=== PATIENT | female | born 2000 | race Caucasian/White ===

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

== ENCOUNTER 2022-01-27 12:49 | Emergency (ER) | payer MEDICAID ==
[~2022-01-27] VITALS: Ht 162.6 cm; Wt 51.0 kg
[~2022-01-27 12:49] MED LIST changes: +NALO4SPR BOTHNARES
[2022-01-27 13:19] VITALS: BP 116/75
== END 2022-01-27 14:51 | disposition home or self-care (01) ==
LOC: ER 12:50
DX: Z00.00 Encounter for general adult medical examination without abnormal findings (principal); F31.9 Bipolar disorder, unspecified; F19.90 Other psychoactive substance use, unspecified, uncomplicated; Z88.0 Allergy status to penicillin; Z88.1 Allergy status to other antibiotic agents
CPT/HCPCS: 99281

== ENCOUNTER 2022-06-23 15:00 | Emergency (ER) | payer MEDICAID ==
[~2022-06-23] VITALS: Ht 165.1 cm; Wt 56.8 kg
[2022-06-23 15:10] VITALS: BP 147/112
== END 2022-06-23 15:50 ==
LOC: ER 15:00
DX: Z04.1 Encounter for examination and observation following transport accident (principal); F41.9 Anxiety disorder, unspecified; F31.9 Bipolar disorder, unspecified; F17.200 Nicotine dependence, unspecified, uncomplicated; F19.90 Other psychoactive substance use, unspecified, uncomplicated; Z72.89 Other problems related to lifestyle; Z88.0 Allergy status to penicillin; Z88.1 Allergy status to other antibiotic agents; Z79.899 Other long term (current) drug therapy; V99.XXXA Unspecified transport accident, initial encounter; Y93.89 Activity, other specified; Y92.89 Other specified places as the place of occurrence of the external cause; Y99.8 Other external cause status
CPT/HCPCS: 99283

== ENCOUNTER 2024-08-10 18:34 | Emergency (ER) | payer MEDICAID ==
[~2024-08-10] VITALS: Ht 157.5 cm; Wt 44.5 kg
[~2024-08-10 18:34] MED LIST changes: +DIAZ-546 PO; -DIAZ10TA PO
[2024-08-10 19:12] LABS: BASOPHILS # (AUTO) 0.1 X10'3 (0-0.2); BASOPHILS % (AUTO) 0.7 % (0-1); EOSINOPHILS # (AUTO) 0.1 X10'3 (0-0.9); HEMATOCRIT 45.2 % (35.0-45.0); HEMOGLOBIN 15.4 g/dl (12.0-16.0); LYMPHOCYTES # (AUTO) 3.7 X10'3 (1.1-4.8); LYMPHOCYTES % (AUTO) 26.8 % (21-51); MEAN CORPUSCULAR HEMOGLOBIN 30.7 PG (27.0-31.0); MEAN CORPUSCULAR HGB CONC 34.1 g/dL (33.0-36.5); MEAN CORPUSCULAR VOLUME 90.2 FL (78-98); MEAN PLATELET VOLUME 7.6 FL (7.4-10.4); MONOCYTES # (AUTO) 0.4 X10'3 (0-0.9); MONOCYTES % (AUTO) 3.2 % (2-12); NEUTROPHILS # (AUTO) 9.3 X10'3 (1.8-7.7); NEUTROPHILS % (AUTO) 68.3 % (42-75); PLATELET COUNT 315 X10'3 (140-440); RED BLOOD COUNT 5.01 X10'6 (4.20-5.60); RED CELL DISTRIBUTION WIDTH 13.3 % (11.5-14.5); WHITE BLOOD COUNT 13.7 X10'3 (4.5-11.0)
[2024-08-10] MEDS: LORazepam 2 mg/ml vial IM ONE (19:20)
[2024-08-10 19:33] LABS: ALBUMIN 4.3 G/DL (3.4-5.0); ANION GAP 15 (8-16); BLOOD UREA NITROGEN 9 MG/DL (7-18); BUN/CREATININE RATIO 16.4 (10.0-20.0); CALCIUM 9.1 MG/DL (8.5-10.1); CHLORIDE 102 MMOL/L (99-107); CREATININE 0.55 MG/DL (0.40-0.90); ETHANOL 282 MG/DL (<10); GLUCOSE 108 MG/DL (70-104); SODIUM 142 MMOL/L (135-145); THYROID STIMULATING HORMONE 0.61 ulU/ml (0.34-4.50); TOTAL CARBON DIOXIDE 25.2 MMOL/L (24-32); eCRCL 113 ML/MIN; eGFR > 90 ML/MIN
[2024-08-10] MEDS: diphenhydrAMINE 50 mg/ml inj IM ONE (19:34)
[2024-08-10] MEDS: haloperidol lactate 5mg/ml inj IM ONE (19:35)
[2024-08-10 19:43] LABS: HCG SERUM QL NEGATIVE
[2024-08-10 19:52] LABS: BILIRUBIN,URINE NEGATIVE (Neg); CLARITY,URINE SLIGHTLY CLOUDY (Clear); COLOR,URINE YELLOW (Yellow); GLUCOSE, URINE NEGATIVE (Neg); KETONES,URINE NEGATIVE (Neg); LEUKOCYTE ESTERASE ,URINE TRACE (Neg); NITRITES, URINE NEGATIVE (Neg); OCCULT BLOOD,URINE NEGATIVE (Neg); PH,URINE 7.5 (4.8-8.0); PROTEIN,URINE 100 mg/dl (Neg); UROBILINOGEN,URINE 0.2 E.U/dL (0.2-1.0)
[2024-08-10 19:54] LABS: UA COLLECTION TYPE VOIDED
[2024-08-10 20:00] LABS: BACTERIA,URINE 2+ /HPF (Neg); RBC,URINE NONE SEEN /HPF (0-2); SQUAMOUS EPITHELIAL CELL,UR MANY /LPF (FEW)
[2024-08-10 20:07] LABS: URINE AMPHETAMINE SCREEN NEGATIVE (Neg); URINE BARBITUATE SCREEN NEGATIVE (Neg); URINE BENZODIAZEPINES SCREEN POSITIVE (Neg); URINE CANNABINOID SCREEN POSITIVE (Neg); URINE COCAINE SCREEN NEGATIVE (Neg); URINE METHADONE SCREEN NEGATIVE (Neg); URINE OPIATE SCREEN NEGATIVE (Neg); URINE PHENCYCLIDINE SCREEN NEGATIVE (Neg)
[2024-08-10] MEDS: diazepam 5mg tablet PO ONE (23:17)
[2024-08-11] MEDS: QUEtiapine 25mg tablet PO ONE (01:34)
[2024-08-11] MEDS: diazepam 5mg tablet PO ONE (02:12)
[2024-08-11] MEDS: phenazopyridine 100mg tablet PO ONE (05:32)
[2024-08-11] MEDS: acetaminophen 325mg tablet PO ONE (05:32)
[2024-08-11] MEDS: diazepam 5mg tablet PO PRN (10:07)
[2024-08-11] MEDS: bisacodyl 10mg suppository rectal RC ONE (10:08)
[2024-08-11 10:20] VITALS: BP 125/96; PULSE 104; RESP 18; TEMP 97.6; O2SAT 99
== END 2024-08-11 15:25 | disposition home or self-care (01) ==
LOC: ER 18:35 → EEVIPCON 18:35 → ER 08-11 15:25
DX: R45.851 Suicidal ideations (principal); F10.129 Alcohol abuse with intoxication, unspecified; M54.2 Cervicalgia; F41.9 Anxiety disorder, unspecified; F31.9 Bipolar disorder, unspecified; Z20.822 Contact with and (suspected) exposure to COVID-19; Z88.0 Allergy status to penicillin; Z88.1 Allergy status to other antibiotic agents; Z79.899 Other long term (current) drug therapy; W10.9XXA Fall (on) (from) unspecified stairs and steps, initial encounter; Y93.89 Activity, other specified; Y92.89 Other specified places as the place of occurrence of the external cause; Y99.8 Other external cause status
CPT/HCPCS: 36415; 70450; 70486; 80048; 80305; 80320; 81001; 84443; 84703; 85025; 87811; 96372; 99285; J1200; J1630; J2060

== ENCOUNTER 2024-11-13 13:21 | Inpatient (IN) | payer MEDICAID ==
[~2024-11-13] VITALS: Ht 162.6 cm; Wt 42.8 kg
[~2024-11-13 13:21] MED LIST changes: -AMPH15TA2 PO; -CLON0.1T PO; -DESV25TA PO; -LISD10CA PO; -NALO4SPR BOTHNARES; -OLAN5TAB75 PO
[2024-11-13 14:06] LABS: BASOPHILS # (AUTO) 0.1 X10'3 (0-0.2); BASOPHILS % (AUTO) 2.3 % (0-1); EOSINOPHILS % (AUTO) 0.7 % (0-6); HEMOGLOBIN 13.5 g/dl (12.0-16.0); LYMPHOCYTES # (AUTO) 0.9 X10'3 (1.1-4.8); LYMPHOCYTES % (AUTO) 18.7 % (21-51); MEAN CORPUSCULAR HEMOGLOBIN 31.8 PG (27.0-31.0); MEAN CORPUSCULAR HGB CONC 32.8 g/dL (33.0-36.5); MEAN CORPUSCULAR VOLUME 96.8 FL (78-98); MEAN PLATELET VOLUME 7.4 FL (7.4-10.4); MONOCYTES # (AUTO) 0.2 X10'3 (0-0.9); MONOCYTES % (AUTO) 5.2 % (2-12); NEUTROPHILS # (AUTO) 3.4 X10'3 (1.8-7.7); NEUTROPHILS % (AUTO) 73.1 % (42-75); PLATELET COUNT 172 X10'3 (140-440); RED BLOOD COUNT 4.24 X10'6 (4.20-5.60); RED CELL DISTRIBUTION WIDTH 15.3 % (11.5-14.5); WHITE BLOOD COUNT 4.6 X10'3 (4.5-11.0)
[2024-11-13 14:22] LABS: ALANINE AMINOTRANSFERASE 125 U/L (12-78); ALBUMIN 4.6 G/DL (3.4-5.0); ALBUMIN/GLOBULIN RATIO 1.1 (1.1-1.5); ALKALINE PHOSPHATASE 179 IU/L (46-116); ANION GAP 24 (8-16); ASPARTATE AMINO TRANSFERASE 276 U/L (10-37); BILIRUBIN,TOTAL 0.7 MG/DL (0.1-1.0); BLOOD UREA NITROGEN 15 MG/DL (7-18); CALCIUM 9.1 MG/DL (8.5-10.1); CHLORIDE 95 MMOL/L (99-107); GLUCOSE 54 MG/DL (70-104); LIPASE 41 U/L (16-77); POTASSIUM 4.5 MMOL/L (3.5-5.1); SODIUM 135 MMOL/L (135-145); TOTAL CARBON DIOXIDE 16.4 MMOL/L (24-32); TOTAL PROTEIN 8.8 G/DL (6.4-8.2); eCRCL 119 ML/MIN; eGFR > 90 ML/MIN
[2024-11-13] MEDS: ondansetron/PF 4mg/2ml inj IV ONE (16:35)
[2024-11-13] MEDS: thiamine 100mg/ml 2ml inj. IV ONE (16:35)
[2024-11-13 16:45] LABS: ETHANOL 100 MG/DL (<10)
[2024-11-13 16:50] LABS: ACETAMINOPHEN < 2.0 UG/ML (10-30)
--- NOTE | 2024-11-13 16:50 | Physician Documentation ---
History of Present Illness ~ Chief Complaint: ETOH Withdrawl Stated Complaint: ETOH WITHDRAWAL Time Seen by MD: 16:17 OK to notify your PCP?: Yes Primary Medical Doctor: ANASTACIO SOLIS Source: patient Mode of Arrival: POV Exam Limitations: no limitations HPI A 24-year-old female who comes in saying she was withdrawing from alcohol. The patient states she drinks a 5th of liquor every day and she drinks every hour. She says she was stopped drinking earlier today in his starting to become very shaky. She states she was never had actual seizures from withdrawal but she was extremely shaky. She also states that she has not had much to eat over the past several days. Tetanus within 5 years?: No Medication Reconciliation Allergies: Coded Allergies: Penicillins (Verified Allergy, Unknown, 06/01/18) amoxicillin (Verified Allergy, Unknown, 06/01/18) Scheduled Diazepam (Valium), 1 TAB PO TID PRN, (Reported) Past Medical History Past Medical History: Anxiety, Bipolar Past Surgical History: noncontributory Alcohol Use: Heavy Drug Use: other Lives with: Mother Lives In: Home Physical Exam Vital Signs: Temperature: 97.8, Source: Oral, Heart Rate: 90, Respiratory Rate: 16, BP: 100/72, Pulse Oximetry: 100, Weight: 42.800 Oxygen Flow Rate: 0 Pulse Oximetry Reflects: adequate oxygenation General Appearance: alert, WD/WN, moderate distress (The patient is very tremulous) Head: no evidence of injury Face: normal Pupils/EOM/Fundus: PERRLA Respiratory No accessory muscle use or retractions. Lungs are clear to auscultation all jefferson. Cardiovascular No rubs, gallops or murmurs. No peripheral edema, cyanosis or clubbing of the extremities Skin: warm/dry, normal color Neurologic: oriented x4, corporate director of human resources II-XII nml as tested, memory intact, oriented to time, oriented to person, oriented to place, oriented to events Cerebellar function exam: tremor (The patient is very tremulous) Thoughts/Hallucinations: normal thought pattern, no apparent hallucination Affect: anxious Progress Results/Orders Reviewed/noted all lab results: Yes Results/Orders Orders - KACY HARRIS Saline Lock (11/13/24 ) Page Hospitalist (11/13/24 19:23) Completed Orders - KACY HARRIS Drug Screen, Urine (11/13/24 16:19) Ondansetron Inj. (Zofran 4mg/2ml Vial) (11/13/24 16:20) Thiamine Inj. (Thiamine Inj.) (11/13/24 16:20) Dextrose 5%-Normal Saline (Dextrose 5%-N (11/13/24 16:45) Diazepam Inj (Valium Inj) (11/13/24 16:45) Normal Saline 1000ml (Sodium Chloride 10 (11/13/24 18:10) Chlordiazepoxide Capsule (Librium Capsul (11/13/24 18:10) Medications Received in ER Medications (Trade) Dose Ordered Sig/Mer Route PRN Reason Start Time Stop Time Status Last Admin Dose Admin (Zofran 4mg/2ml vial) 4 mg ONCE ONCE IV 11/13/24 16:20 11/13/24 16:22 DC 11/13/24 16:35 4 MG (thiamine inj.) 100 mg ONCE ONCE IV 11/13/24 16:20 11/13/24 16:22 DC 11/13/24 16:35 100 MG Dextrose/Sodium Chloride 1,000 ml @ 50 mls/hr Q20H ONCE IV 11/13/24 16:45 11/13/24 18:19 DC 11/13/24 17:31 50 MLS/HR (Valium inj) 5 mg ONCE ONCE IV 11/13/24 16:45 11/13/24 16:47 DC 11/13/24 17:32 5 MG Sodium Chloride 1,000 ml @ 1,000 mls/hr ONCE ONCE IV 11/13/24 18:10 11/13/24 19:09 DC 11/13/24 18:34 1,000 MLS/HR (Librium capsule) 50 mg ONCE ONCE PO 11/13/24 18:10 11/13/24 18:11 DC 11/13/24 18:34 50 MG Vital Signs 11/13/24 11/13/24 11/13/24 11/13/24 13:27 16:42 16:59 19:06 Temp 97.8 97.8 Pulse 101 90 Resp 18 16 18 B/P (MAP) 125/81 100/72 (81) Pulse Ox 97 100 O2 Flow Rate 0 0 11/13/24 19:09 Pulse 92 Resp 16 B/P (MAP) 119/86 (97) Pulse Ox 99 O2 Flow Rate 0 Laboratory Tests Test 11/13/24 13:31 11/13/24 13:47 11/13/24 18:07 Urine Specimen Description Cln catch midstream Urine Color Yellow Urine Clarity Slightly cloudy Urine pH 6.0 Urine Specific [place] >=1.030 Urine Protein 30 H Urine Glucose (UA) Negative Urine Ketones >=80 Urine Occult Blood Trace-intact Urine Nitrite Negative Urine Bilirubin Negative Urine Urobilinogen 0.2 Urine Leukocyte Esterase Negative Urine RBC 0-2 Urine WBC 0-4 Urine Squamous Epithelial Cells Many Urine Transitional Epithelial Cells Few Urine Bacteria Few Urine Fine Granular Casts 0-3 Urine Mucus Moderate Urine Culture Indicated Not ind Volume Urine Centrifuged 10 ml Urine HCG, Qualitative Negative Urine Comment Urine Opiates Screen Negative Urine Methadone Screen Negative Urine Fentanyl Screen Negative Urine Barbiturates Screen Negative Urine Phencyclidine Screen Negative Urine Amphetamines Screen Positive Urine Benzodiazepines Screen Positive Urine Cocaine Screen Negative Urine Cannabinoids Screen Negative Drug Screen Comment White Blood Count 4.6 Red Blood Count 4.24 Hemoglobin 13.5 Hematocrit 41.0 Mean Corpuscular Volume 96.8 Mean Corpuscular Hemoglobin 31.8 H Mean Corpuscular Hemoglobin Concent 32.8 L Red Cell Distribution Width 15.3 H Platelet Count 172 Mean Platelet Volume 7.4 Neutrophils (%) (Auto) 73.1 Lymphocytes (%) (Auto) 18.7 L Monocytes (%) (Auto) 5.2 Eosinophils (%) (Auto) 0.7 Basophils (%) (Auto) 2.3 H Neutrophils # (Auto) 3.4 Lymphocytes # (Auto) 0.9 L Monocytes # (Auto) 0.2 Eosinophils # (Auto) 0.0 Basophils # (Auto) 0.1 CBC Comment Sodium Level 135 Potassium Level 4.5 Chloride Level 95 L Carbon Dioxide Level 16.4 L Anion Gap 24 H Blood Urea Nitrogen 15 Creatinine 0.50 Estimated GFR/1.73 m2 > 90 BUN/Creatinine Ratio 30.0 H Glucose Level 54 L Calcium Level 9.1 Total Bilirubin 0.7 Aspartate Amino Transf (AST/SGOT) 276 H Alanine Aminotransferase (ALT/SGPT) 125 H Alkaline Phosphatase 179 H Total Protein 8.8 H Albumin 4.6 Globulin 4.2 Albumin/Globulin Ratio 1.1 Lipase 41 Chemistry Comments Acetaminophen Level < 2.0 L Ethyl Alcohol Level 100 H Glucometer 222 H Medical Decision Making Findings Patient was quite tremulous and obviously having a significant withdrawal from alcohol. We are experiencing a nationwide shortage of Ativan so I gave her Valium 5 mg IV and in his she ordered D5 half-normal saline as her blood sugar was 50 forward she says she has not had much to eat or drink over the past couple of days. I ordered this that is 50 cc/hour however it seems it was ran in much quicker which brought her blood sugar up to 222 so I DC with the D5 half-normal saline and switched over to a bolus of normal saline. I also gave the patient Zofran 4 mg IV and thiamine 100 mg IV. The patient was still quite tremulous so I gave her Librium 50 mg p.o.. With this point I believe the patient would benefit from admission. Her AST ALT in alk phos were all elevated. This is concerning for transaminitis. I will place a call out to the hospitalist for admission. Additional Comment Alcohol abuse. Alcohol withdrawals. Delirium tremors. Departure Disposition: ADMITTED INPATIENT Admitted to Inpatient Unit: yes, to hospitalist Impression: Primary Impression: Alcohol withdrawal syndrome Additional Impression: Transaminitis Condition: Guarded Referrals: NO PRIMARY CARE PROVIDER (PCP) Signature Scribe Signature: No scribe Attestation: The note accurately reflects work and decisions made by me.Kacy BRODERICK 11/13/24 19:36 KACY HARRIS Nov 13, 2024 16:50
[2024-11-13 16:51] LABS: BILIRUBIN,URINE NEGATIVE (Neg); CLARITY,URINE SLIGHTLY CLOUDY (Clear); COLOR,URINE YELLOW (Yellow); GLUCOSE, URINE NEGATIVE (Neg); KETONES,URINE >=80 mg/dl (Neg); LEUKOCYTE ESTERASE ,URINE NEGATIVE (Neg); NITRITES, URINE NEGATIVE (Neg); OCCULT BLOOD,URINE TRACE-INTACT (Neg); PROTEIN,URINE 30 mg/dl (Neg); UROBILINOGEN,URINE 0.2 E.U/dL (0.2-1.0)
[2024-11-13 16:53] LABS: URINE HCG NEGATIVE (NEG)
[2024-11-13 16:54] LABS: UA COLLECTION TYPE CLN CATCH MIDSTREAM
[2024-11-13 16:57] LABS: BACTERIA,URINE FEW /HPF (Neg); MUCUS STRANDS MODERATE /LPF (Neg); RBC,URINE 0-2 /HPF (0-2); SQUAMOUS EPITHELIAL CELL,UR MANY /LPF (FEW); TRANSITIONAL EPI CELLS,URINE FEW /HPF; WBC,URINE 0-4 /HPF (0-4)
[2024-11-13 16:58] LABS: FINE GRANULAR CAST 0-3 /LPF (NEGATIVE)
[2024-11-13 17:07] LABS: URINE AMPHETAMINE SCREEN POSITIVE (Neg); URINE BARBITUATE SCREEN NEGATIVE (Neg); URINE BENZODIAZEPINES SCREEN POSITIVE (Neg); URINE CANNABINOID SCREEN NEGATIVE (Neg); URINE COCAINE SCREEN NEGATIVE (Neg); URINE METHADONE SCREEN NEGATIVE (Neg); URINE OPIATE SCREEN NEGATIVE (Neg); URINE PHENCYCLIDINE SCREEN NEGATIVE (Neg)
[2024-11-13] MEDS: dextrose 5%-normal saline 1,000 ML IV ONE (17:31)
[2024-11-13] MEDS: diazepam inj 5 MG/ML inj. IV ONE (17:32)
[2024-11-13] MEDS: chlordiazePOXIDE 25mg capsule PO ONE (18:34)
[2024-11-13] MEDS: normal saline 1000ml 1,000 ML IV ONE (18:34)
[2024-11-13] MEDS ORDERED: LORazepam 2 mg/ml vial IV PRN (19:30)
[2024-11-13] MEDS ORDERED: potassium Cl 20 mEq SR tablet PO PRN ×2 (19:30)
[2024-11-13] MEDS ORDERED: magnesium sulf-water 2g/50mL 50 ML IV PRN (19:30)
[2024-11-13] MEDS ORDERED: haloperidol lactate 5mg/ml inj IM PRN (19:30)
[2024-11-13] MEDS ORDERED: mag hydrox/Alum hydrox/simeth 30ml oral suspension PO PRN (19:30)
[2024-11-13] MEDS ORDERED: magnesium hydroxide 30ml (MOM) UD suspension PO PRN (19:30)
[2024-11-13] MEDS ORDERED: HYDROcodone/acetaminophen 5mg/325mg tablet PO PRN (19:30)
[2024-11-13] MEDS ORDERED: morphine 2 MG/ML inj. syringe IV PRN (19:30)
[2024-11-13] MEDS ORDERED: dextrose 50%-water 50ml dispensing syringe IV PRN (19:30)
[2024-11-13] MEDS ORDERED: magnesium sulf-water 4G/100mL 100 ML IV PRN (19:30)
[2024-11-13] MEDS ORDERED: potassium Cl 40MEQ/1/2NS 520ml 520 ML IV PRN (19:30)
[2024-11-13] MEDS ORDERED: normal saline 1000ml 1,000 ML IV SCH (19:30)
[2024-11-13] MEDS ORDERED: acetaminophen 325mg tablet PO PRN (19:30)
[2024-11-13] MEDS ORDERED: ondansetron/PF 4mg/2ml inj IV PRN (19:30)
[2024-11-13] MEDS: K and/or MAG REPLACEMENT MC SCH (20:00)
[2024-11-13] MEDS: heparin, porcine 5000 units/ml vial SQ SCH (20:00)
[2024-11-13] MEDS: docusate sod 100mg capsule PO SCH (20:00)
[2024-11-13] MEDS ORDERED: LORazepam 1 MG tablet PO PRN (20:07)
--- NOTE | 2024-11-13 20:08 | HISTORY AND PHYSICAL-Residence ---
History & Physical Providers to CC Resident Creating Document: OLU RIVAS, RES CC: EMILE CARABALLO Jr. DO ~ History of Present Illness Primary Medical Doctor: ANASTACIO SOLIS Reason for Admit\Complaint: Alcohol withdrawal History of Present Illness A 24-year-old female with past medical history of anxiety presented to the ED as she was shaky, sweating and did not feel safe at home. Patient endorses headache, blurring of vision. Patient also endorses nausea but does not have vomitings. Patient endorses consumption of a 5th of alcohol (vodka) this morning. Patient denies pain abdomen, seizure episodes. Allergies: Coded Allergies: Penicillins (Verified Allergy, Unknown, 06/01/18) amoxicillin (Verified Allergy, Unknown, 06/01/18) Home Medications Home Medications Active Reported Valium (Diazepam) 10 Mg Tablet 1 Tab PO TID PRN Past Medical History Past Medical History Anxiety Past Surgical History Surgical History Comment None Past Social History Social History Comment Drinks 1/5 of alcohol (vodka) every day Consumes tobacco in the form of vaping Consumes marijuana but quit 3-4 months ago Claims that she tried meth only yesterday Lives by herself with a roommate Alcohol Use: Heavy Drug Use: Other Lives with: Mother Lives In: Home ROS ROS All other systems negative except for the pertinent positives mentioned in the HPI Exam Vitals: Vital Signs Date Time Temp Pulse Resp B/P (MAP) Pulse Ox O2 Delivery O2 Flow Rate FiO2 11/13/24 19:09 92 16 119/86 (97) 99 0 11/13/24 16:42 97.8 General: General: Drowsy, oriented to time place person, able to follow commands HEENT: An erythematous lesion at the corner of the left side of the nose, in the angle of the left side of the mouth, PERRLA, no icterus, pallor, lymphadenopathy, carotid bruit Respiratory system: Bilateral vesicular breath sounds heard, no adventitious breath sounds CVS: S1-S2 heard, no murmurs/rubs/gallop GI: Soft, nontender, no organomegaly, no guarding/rigidity, bowel sounds present Neuro: No focal neurological deficits Extremities: Shaking of hands when extended, No edema cyanosis clubbing Musculoskeletal: No deformities Skin: Warm and dry Psych: Anxious Diagnostic Data Last Recorded Lab Results: 11/13/24 1347 11/13/24 1347 Advance Care Planning Advanced Care plannin - 30 Minutes (I spent 20 minutes discussing various resuscitative measures and the patient decided to be full code) Additional Plan Assessment: 24-year-old female presented to the ED after consuming about 1/5 of alcohol this morning. Patient was admitted for the evaluation and management of alcohol withdrawal and elevated transaminases. 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 Alcoholic ketoacidosis Urinalysis positive for ketones Continue IV fluids Elevated anion gap, decreased bicarb Continue to monitor CMP, if bicarb continues to be low or decreases further we will consider bicarb drip Possible Alcoholic hepatitis Elevated liver enzymes, AST/ALT: 2.2 Follow up with hepatitis panel, INR Follow up with ultrasound abdomen Drug use disorder U tox positive for meth business services intern and substance abuse navigator Anxiety Continue Librium Outpatient consult Code status: Full code Diet: Regular DVT prophylaxis: Heparin 5000 subcu Disposition: Admit to ortho, follow up with ultrasound abdomen and INR, fluid resuscitation Olu Rivas MD Internal Medicine, PGY 1 Nocturnal revenue stamp cutter attestation of resident HP. Attestation of HP only, care immediately directed to hospitalist team - Liberium - Diet - Meth WD - Lisbeth for DVT proph Patient seen through remote audiovisual assessment through HIPAA compliant setup. All labs, flowsheets, and images reviewed. Date of Service: Nov 13, 2024 Billing Provider: EMILE CARABALLO Jr. DO OLU RIVAS, RES Nov 13, 2024 20:08 EMILE CARABALLO Jr. DO Nov 14, 2024 04:11
[2024-11-13] MEDS: LORazepam 1 MG tablet PO PRN (20:12)
[2024-11-13 20:34] LABS: PROTHROMBIN TIME 10.2 SECONDS (9.0-12.0)
[2024-11-13] MEDS ORDERED: chlordiazePOXIDE 25mg capsule PO SCH (21:00)
[2024-11-13] MEDS: haloperidol 5mg tablet PO PRN (21:15)
[2024-11-13] MEDS: thiamine 100mg/ml 2ml inj. IV SCH (21:16)
[2024-11-13] MEDS: dextrose 5%-normal saline 1,000 ML IV SCH (21:20)
[2024-11-13 21:24] LABS: PHOSPHORUS 4.5 MG/DL (2.3-4.5)
[2024-11-13 22:49] VITALS: BP 122/84; PULSE 105; RESP 14; O2SAT 100
[2024-11-13 23:30] VITALS: BP 118/79; PULSE 108; RESP 18; TEMP 98.2; O2SAT 99
[2024-11-14] MEDS: chlordiazePOXIDE 25mg capsule PO SCH (00:09)
[2024-11-14 06:00] VITALS: BP 106/73; PULSE 89; RESP 18; TEMP 98.2; O2SAT 97
--- NOTE | 2024-11-14 06:51 | RADIOLOGY REPORT ---
EXAM: US Abdomen Limited, Right Upper Quadrant CLINICAL INDICATION: elevated Bilirubin TECHNIQUE: Real-time ultrasound of the right upper quadrant with image documentation. COMPARISON: None FINDINGS: LIVER: Liver measures up to 18.67 cm. Fatty infiltration of the liver. No intrahepatic bile duct dilation. GALLBLADDER: Gallbladder sludge. Negative Landeros's sign was reported by the shear operator automatic. No galls tones. COMMON BILE DUCT: Unremarkable as visualized. No stones. No dilation. Common bile duct measures 0.27 cm in diameter. PANCREAS: Unremarkable as visualized. RIGHT KIDNEY: Unremarkable. No stones. No hydronephrosis. The right kidney measures 9.9 x 2.9 x 5.3 cm. OTHER FINDINGS: . . IMPRESSION: Fatty infiltration of the liver. Gallbladder sludge without convincing evidence of acute cholecystitis.
[2024-11-14 07:03] LABS: BASOPHILS % (AUTO) 0.4 % (0-1); EOSINOPHILS # (AUTO) 0.1 X10'3 (0-0.9); EOSINOPHILS % (AUTO) 1.2 % (0-6); HEMATOCRIT 34.6 % (35.0-45.0); HEMOGLOBIN 11.6 g/dl (12.0-16.0); LYMPHOCYTES # (AUTO) 0.9 X10'3 (1.1-4.8); LYMPHOCYTES % (AUTO) 16.4 % (21-51); MEAN CORPUSCULAR HEMOGLOBIN 32.1 PG (27.0-31.0); MEAN CORPUSCULAR HGB CONC 33.6 g/dL (33.0-36.5); MEAN CORPUSCULAR VOLUME 95.4 FL (78-98); MEAN PLATELET VOLUME 8.1 FL (7.4-10.4); MONOCYTES # (AUTO) 0.3 X10'3 (0-0.9); MONOCYTES % (AUTO) 5.6 % (2-12); NEUTROPHILS # (AUTO) 4.3 X10'3 (1.8-7.7); NEUTROPHILS % (AUTO) 76.4 % (42-75); PLATELET COUNT 126 X10'3 (140-440); RED BLOOD COUNT 3.62 X10'6 (4.20-5.60); RED CELL DISTRIBUTION WIDTH 15.1 % (11.5-14.5); WHITE BLOOD COUNT 5.6 X10'3 (4.5-11.0)
[2024-11-14] MEDS: folic acid 1mg/0.2ml inj IV SCH (07:22)
[2024-11-14] MEDS: multivitamins, therapeutics tablet PO SCH (07:22)
[2024-11-14 07:38] LABS: ALANINE AMINOTRANSFERASE 77 U/L (12-78); ALBUMIN 3.2 G/DL (3.4-5.0); ALKALINE PHOSPHATASE 130 IU/L (46-116); ANION GAP 13 (8-16); ASPARTATE AMINO TRANSFERASE 128 U/L (10-37); BILIRUBIN,TOTAL 0.8 MG/DL (0.1-1.0); BLOOD UREA NITROGEN 9 MG/DL (7-18); BUN/CREATININE RATIO 20.9 (10.0-20.0); CALCIUM 8.3 MG/DL (8.5-10.1); CHLORIDE 104 MMOL/L (99-107); CREATININE 0.43 MG/DL (0.40-0.90); GLUCOSE 90 MG/DL (70-104); MAGNESIUM 1.6 MG/DL (1.5-2.4); POTASSIUM 3.7 MMOL/L (3.5-5.1); SODIUM 140 MMOL/L (135-145); TOTAL CARBON DIOXIDE 23.2 MMOL/L (24-32); TOTAL PROTEIN 6.4 G/DL (6.4-8.2); eCRCL 139 ML/MIN; eGFR > 90 ML/MIN
[2024-11-14 10:00] VITALS: BP 110/74; PULSE 81; RESP 12; TEMP 98.2; O2SAT 99
[2024-11-14] MEDS ORDERED: lactose-reduced food (Ensure Enlive) - 237ml bottle PO SCH (13:00)
[2024-11-14] MEDS ORDERED: NO HOME MEDS (14:58)
[2024-11-14] MEDS: lactose-reduced food (Ensure Enlive) - 237ml bottle PO SCH (17:54)
[2024-11-14 18:00] VITALS: BP 108/73; PULSE 79; RESP 12; TEMP 98.3; O2SAT 99
--- NOTE | 2024-11-14 19:09 | PROGRESS NOTE- Residence ---
Progress Note - Resident Providers to CC Resident Creating Document: ALEXANDRIA FREED, ALCIRA ~ Antibiotic Timeout Antibiotic Ordered?: No Subjective Patient was seen and examined at bedside today. Patient appeared drowsy. Objective Vital Signs Date Time Temp Pulse Resp B/P (MAP) Pulse Ox O2 Delivery O2 Flow Rate FiO2 11/14/24 10:00 98.2 81 12 110/74 (86) 99 Room Air 11/14/24 08:00 0.0 Result Diagram: 11/14/24 0544 11/14/24 0544 General: Drowsy, oriented to time place person, able to follow commands HEENT: An erythematous lesion at the corner of the left side of the nose, in the angle of the left side of the mouth, PERRLA, no icterus, pallor, lymphadenopathy, carotid bruit Respiratory system: Bilateral vesicular breath sounds heard, no adventitious breath sounds CVS: S1-S2 heard, no murmurs/rubs/gallop GI: Soft, nontender, no organomegaly, no guarding/rigidity, bowel sounds present Neuro: No focal neurological deficits Extremities: Shaking of hands when extended, No edema cyanosis clubbing Musculoskeletal: No deformities Skin: Warm and dry Coagulation Studies Laboratory Tests Test 11/13/24 20:12 Prothrombin Time 10.2 SECONDS (9.0-12.0) INR International Normalized Ratio 1.0 INR Coagulation Comments Plan Plan Assessment: 24-year-old female presented to the ED after consuming about 1/5 of alcohol this morning. Patient was admitted for the evaluation and management of alcohol withdrawal and elevated transaminases. Plan: Alcohol use disorder Alcohol withdrawal Patient presents with tremulousness Elevated ethyl alcohol On alcohol withdrawal protocol In the ED patient received IV thiamine, DNS Librium 25 mg TID MVT , thiamine IV and folic acid. IV Aspiration precautions medical staff services manager and substance abuse navigator Alcoholic ketoacidosis Urinalysis positive for ketones Bicarb improved, anion gap closed. Continue IV fluids Continue to monitor CMP, if bicarb continues to be low or decreases further we will consider bicarb drip Possible Alcoholic hepatitis Elevated liver enzymes, trending down Follow up with hepatitis panel, INR Ultrasound abdomen showed fatty liver Drug use disorder U tox positive for meth medical staff services manager and substance abuse navigator Anxiety Continue Librium Outpatient consult Code status: Full code Diet: Regular DVT prophylaxis: Heparin 5000 subcu GI prophylaxis; plantar Disposition: Guarded Alexandria Freed M.D PGY1 Date of Service: Nov 14, 2024 Billing Provider: KAISER MELENDEZ MD Common Visit Codes: [id number] INP/OBS CARE(HIGH) ALEXANDRIA FREED, RES Nov 14, 2024 19:09 KAISER MELENDEZ MD Nov 14, 2024 20:32
[2024-11-14 22:00] VITALS: BP 119/88; PULSE 96; RESP 16; TEMP 98.9; O2SAT 99
[2024-11-15 04:19] LABS: BASOPHILS % (AUTO) 0.8 % (0-1); EOSINOPHILS # (AUTO) 0.1 X10'3 (0-0.9); EOSINOPHILS % (AUTO) 2.9 % (0-6); HEMATOCRIT 35.1 % (35.0-45.0); HEMOGLOBIN 12.1 g/dl (12.0-16.0); LYMPHOCYTES # (AUTO) 0.9 X10'3 (1.1-4.8); LYMPHOCYTES % (AUTO) 26.4 % (21-51); MEAN CORPUSCULAR HEMOGLOBIN 32.8 PG (27.0-31.0); MEAN CORPUSCULAR HGB CONC 34.4 g/dL (33.0-36.5); MEAN CORPUSCULAR VOLUME 95.5 FL (78-98); MEAN PLATELET VOLUME 7.9 FL (7.4-10.4); MONOCYTES # (AUTO) 0.3 X10'3 (0-0.9); MONOCYTES % (AUTO) 9.1 % (2-12); NEUTROPHILS % (AUTO) 60.8 % (42-75); PLATELET COUNT 108 X10'3 (140-440); RED BLOOD COUNT 3.68 X10'6 (4.20-5.60); RED CELL DISTRIBUTION WIDTH 14.9 % (11.5-14.5); WHITE BLOOD COUNT 3.2 X10'3 (4.5-11.0)
[2024-11-15 04:34] LABS: ALANINE AMINOTRANSFERASE 65 U/L (12-78); ALBUMIN 3.1 G/DL (3.4-5.0); ALKALINE PHOSPHATASE 118 IU/L (46-116); ANION GAP 9 (8-16); ASPARTATE AMINO TRANSFERASE 83 U/L (10-37); BILIRUBIN,TOTAL 0.4 MG/DL (0.1-1.0); BLOOD UREA NITROGEN 4 MG/DL (7-18); BUN/CREATININE RATIO 8.9 (10.0-20.0); CALCIUM 8.3 MG/DL (8.5-10.1); CHLORIDE 106 MMOL/L (99-107); CREATININE 0.45 MG/DL (0.40-0.90); GLUCOSE 116 MG/DL (70-104); MAGNESIUM 1.4 MG/DL (1.5-2.4); POTASSIUM 3.5 MMOL/L (3.5-5.1); SODIUM 139 MMOL/L (135-145); TOTAL CARBON DIOXIDE 24.3 MMOL/L (24-32); TOTAL PROTEIN 6.3 G/DL (6.4-8.2); eCRCL 132 ML/MIN; eGFR > 90 ML/MIN
[2024-11-15 06:00] VITALS: BP 122/78; PULSE 82; RESP 15; TEMP 97.6; O2SAT 99
[2024-11-15 07:10] VITALS: BP 122/78; PULSE 82; RESP 15; TEMP 97.6; O2SAT 99
[2024-11-15 07:11] LABS: HBSAG SCREEN Negative (Negative); HEP A AB, IGM Negative (Negative); HEP B CORE AB, IGM Negative (Negative); HEPATITIS C VIRUS ANTIBODY Non Reactive (Non Reactive)
[2024-11-15] MEDS: pantoprazole 40mg Tablet.DR PO SCH (08:04)
[2024-11-15] MEDS ORDERED: LORA-269 PO (08:18)
[2024-11-15] MEDS: magnesium Cl slow-release 64mg tablet PO PRN (09:13)
--- NOTE | 2024-11-15 19:12 | DISCHARGE SUMMARY-Residence ---
Discharge Summary Providers to CC Resident Creating Document: DESI BARNESLILIANATANIALCIRA ~ Discharge Summary Admission Diagnosis: ALCOHOL WITHDRAWL, KETOACIDOSIS Hospital Course DATE OF ADMISSION: 11/13/2024 DATE OF DISCHARGE: 11/15/2024 Labs at the time of discharge WBC 3.2 Hemoglobin 12.1 Sodium 139 Potassium 3.5 Creatinine 0.45 AST eight three ALT 65 Alkaline phosphatase 118 U tox positive for benzodiazepines Ethyl alcohol level 100 Urine analysis negative for infection Hepatitis B negative, hepatitis-C negative, hepatitis-A negative Abdominal ultrasound ] Fatty infiltration of the liver. Gallbladder sludge without convincing evidence of acute cholecystitis. Discharge Diagnosis\Comment: Alcohol use disorder Alcohol withdrawal Alcohol ketoacidosis Transaminitis Drug use disorder Operations\Procedures: None Consultants: None Complications: None Condition on DC: Stable New Medications: Lorazepam (Ativan) 1 Mg Tablet 1 TAB PO Q12H PRN PRN for anxiety, #20 TAB 0 Refills Discontinued Medications: Home Med List (No Home Medications) Each Discharge Summary: This is a 24-year-old female with past medical history of anxiety presented to the ED with the complaints of shakiness, sweating, headache, blurring of vision. She also had nausea but no vomiting. She consumes about 5th of vodka every day. S drink was the morning. She was admitted for management of alcohol withdrawal. She was started on withdrawal protocol, Librium 25 mg t.i.d., Ativan p.r.n.. She was given IV thiamine and folic acid and multivitamins. Was placed on aspiration precautions. Urine analysis was positive for ketones with a low bicarb and elevated anion gap. Was managed for alcoholic ketoacidosis with IV fluids. Her liver enzymes were elevated at the time of admission, trended down with IV fluids. Ultrasound showed fatty liver. Hepatitis-B and C were negative. Her U tox was positive for methamphetamine. Patient has improved symptomatically and is stable enough to be discharged home. At the time of discharge he had the following physical examination finds General: Drowsy, oriented to time place person, able to follow commands HEENT: An erythematous lesion at the corner of the left side of the nose, in the angle of the left side of the mouth, PERRLA, no icterus, pallor, lymphadenopathy, carotid bruit Respiratory system: Bilateral vesicular breath sounds heard, no adventitious breath sounds CVS: S1-S2 heard, no murmurs/rubs/gallop GI: Soft, nontender, no organomegaly, no guarding/rigidity, bowel sounds present Neuro: No focal neurological deficits Extremities: Shaking of hands when extended, No edema cyanosis clubbing Musculoskeletal: No deformities Skin: Warm and dry Discharge medications Lorazepam 1 mg q.12 p.r.n. Follow up with PCP in two weeks Try and quit alcohol drinking. Call 911 or return to ER in case of headache, seizures, increased shakiness, tremors. *Problems/Diagnosis: (1) Alcoholic intoxication Status: Acute (2) Alcohol withdrawal syndrome Status: Acute (3) Polysubstance abuse Status: Acute Total Time Spent on D/C: Up to 30 Minutes Date of Service: Nov 15, 2024 Billing Provider: KAISER MELENDEZ MD Common Visit Codes: [id number]-[id number] DISCH DAY >30min ALEXANDRIA BARNES, RES Nov 15, 2024 19:12 KAISER MELENDEZ MD Nov 15, 2024 21:31
[2024-11-15] MEDS ORDERED: LORazepam 2 mg/ml vial IV PRN (19:30)
[2024-11-17] MEDS ORDERED: thiamine 100mg tablet PO SCH (08:00)
[2024-11-17] MEDS ORDERED: LORazepam 2 mg/ml vial IV PRN (19:30)
[2024-11-18] MEDS ORDERED: folic acid 1mg tablet PO SCH (08:00)
== END 2024-11-15 10:13 | disposition home or self-care (01) | DRG 249 ==
LOC: ER 13:22 → ED HOLD 19:53 → ORTHO 4S 22:00
PROVIDERS: ADMIT Internal Medicine Critical Care Medicine; ATTEND Internal Medicine
DX: R11.0 Nausea (principal); E87.29 Other acidosis; F10.239 Alcohol dependence with withdrawal, unspecified; F31.9 Bipolar disorder, unspecified; F41.9 Anxiety disorder, unspecified; F15.90 Other stimulant use, unspecified, uncomplicated
CPT/HCPCS: 36415; 76700; 80053; 80074; 80305; 80320; 80329; 81001; 81025; 82948; 82977; 83690; 83735; 84100; 85025; 85610; 87081; 96365; 96375; 97110; 97116; 97161; 99285; G0378; J2405; J3360; J3411; J3490; J7030; J7042; J7070

== ENCOUNTER 2025-01-09 00:08 | Inpatient (IN) | payer MEDICAID ==
[~2025-01-09] VITALS: Ht 162.6 cm; Wt 51.2 kg
[~2025-01-09 00:08] MED LIST changes: -DIAZ-546 PO; +LORA-269 PO
[2025-01-09 02:30] LABS: BASOPHILS % (AUTO) 0.8 % (0-1); EOSINOPHILS % (AUTO) 0.1 % (0-6); HEMATOCRIT 43.9 % (35.0-45.0); LYMPHOCYTES % (AUTO) 20.1 % (21-51); MEAN CORPUSCULAR HEMOGLOBIN 32.5 PG (27.0-31.0); MEAN CORPUSCULAR HGB CONC 34.1 g/dL (33.0-36.5); MEAN CORPUSCULAR VOLUME 95.4 FL (78-98); MEAN PLATELET VOLUME 6.9 FL (7.4-10.4); MONOCYTES # (AUTO) 0.2 X10'3 (0-0.9); MONOCYTES % (AUTO) 4.4 % (2-12); NEUTROPHILS # (AUTO) 3.6 X10'3 (1.8-7.7); NEUTROPHILS % (AUTO) 74.6 % (42-75); PLATELET COUNT 153 X10'3 (140-440); RED CELL DISTRIBUTION WIDTH 14.8 % (11.5-14.5); WHITE BLOOD COUNT 4.8 X10'3 (4.5-11.0)
[2025-01-09 02:38] LABS: ALANINE AMINOTRANSFERASE 144 U/L (12-78); ALBUMIN 4.5 G/DL (3.4-5.0); ALBUMIN/GLOBULIN RATIO 1.1 (1.1-1.5); ALKALINE PHOSPHATASE 151 IU/L (46-116); ANION GAP 15 (8-16); ASPARTATE AMINO TRANSFERASE 280 U/L (10-37); BILIRUBIN,TOTAL 0.6 MG/DL (0.1-1.0); BLOOD UREA NITROGEN 13 MG/DL (7-18); BUN/CREATININE RATIO 21.3 (10.0-20.0); CHLORIDE 96 MMOL/L (99-107); CREATININE 0.61 MG/DL (0.40-0.90); GLUCOSE 113 MG/DL (70-104); POTASSIUM 4.3 MMOL/L (3.5-5.1); SODIUM 135 MMOL/L (135-145); TOTAL CARBON DIOXIDE 24.3 MMOL/L (24-32); TOTAL PROTEIN 8.6 G/DL (6.4-8.2); eCRCL 117 ML/MIN; eGFR > 90 ML/MIN
[2025-01-09 02:39] LABS: LIPASE > 375 U/L (16-77)
[2025-01-09 02:40] LABS: ETHANOL 415 MG/DL (<10)
[2025-01-09] MEDS: normal saline 1000ml 1,000 ML IV ONE ×2 (06:33→07:36)
[2025-01-09] MEDS: ondansetron/PF 4mg/2ml inj IV ONE (07:25)
--- NOTE | 2025-01-09 07:38 | Physician Documentation ---
History of Present Illness ~ Chief Complaint: ETOH Stated Complaint: ETOH Time Seen by MD: 06:13 Primary Medical Doctor: ANASTACIO SOLIS Mode of Arrival: POV HPI 24-year-old female presenting with alcohol intoxication. The patient has had an issue with alcohol and drinks a 5th of vodka daily. States that she was drinking heavily yesterday. Patient came in with multiple mental status in his also complaining of severe abdominal pain. Patient has very nauseous and did vomit a couple of occasions as well. States that she is trying to get into rehab. Denies any other associated symptoms. Tetanus within 5 years?: No Medication Reconciliation Allergies: Coded Allergies: Penicillins (Verified Allergy, Unknown, 06/01/18) amoxicillin (Verified Allergy, Unknown, 06/01/18) Scheduled PRN Lorazepam (Ativan), 1 TAB PO Q12H PRN PRN for anxiety Past Medical History Past Medical History: Anxiety, Bipolar Past Surgical History: noncontributory Smoking Status: Current some day smoker Alcohol Use: Heavy Drug Use: other Lives with: Mother Lives In: Home Review of Systems All Other Systems at this time: Reviewed and Negative Physical Exam Vital Signs: Temperature: 98.8, Source: Temporal, Heart Rate: 88, Respiratory Rate: 22, BP: 127/92, Pulse Oximetry: 99, Weight: 51.250 Oxygen Flow Rate: 0 Physical Exam I have reviewed the triage vitals. CONST: Well developed and well nourished. In no acute distress. Intoxicated HENT: Head Atraumatic EYES: Pupils are equal, round and reactive to light. Normal conjunctiva NECK: Normal range of motion. Supple. CARDIO: Normal rate and regular rhythm. No murmurs, rubs, or gallops. S1, S2. PULM/CHEST: No respiratory distress. Lungs clear to auscultation. No wheeze ABD: Soft. Tenderness to palpation over the epigastrium and right upper quadrant. Nondistended. Bowel sounds normal. No guarding. : Exam deferred MSK: No edema. No deformity. NEURO: Alert and oriented to person, place and time. Moving all extremities SKIN: Warm and dry. PSYCH: Normal mood and affect. Good eye contact. Progress Results/Orders Results/Orders Orders - WYATT GRANADOS MD Page Hospitalist (01/09/25 07:33) Fill Out Med Reconciliation (01/09/25 07:33) Completed Orders - WYATT GRANADOS MD Normal Saline 1000ml (Sodium Chloride 10 (01/09/25 06:15) Ondansetron Inj. (Zofran 4mg/2ml Vial) (01/09/25 07:20) Normal Saline 1000ml (Sodium Chloride 10 (01/09/25 07:30) Diazepam Inj (Valium Inj) (01/09/25 07:35) Morphine 4mg/Ml Inj. (Morphine Inj.) (01/09/25 07:35) Thiamine Inj. (Thiamine Inj.) (01/09/25 07:35) Folic Acid Inj. (Folic Acid Inj.) (01/09/25 07:35) Diazepam Inj (Valium Inj) (01/09/25 07:35) Medications Received in ER Medications (Trade) Dose Ordered Sig/Mer Route PRN Reason Start Time Stop Time Status Last Admin Dose Admin Sodium Chloride 1,000 ml @ 1,000 mls/hr ONCE ONCE IV 01/09/25 06:15 01/09/25 07:14 DC 01/09/25 06:33 1,000 MLS/HR (Zofran 4mg/2ml vial) 4 mg ONCE ONCE IV 01/09/25 07:20 01/09/25 07:21 DC 01/09/25 07:25 4 MG Sodium Chloride 1,000 ml @ 1,000 mls/hr ONCE ONCE IV 01/09/25 07:30 01/09/25 08:29 DC 01/09/25 07:36 1,000 MLS/HR (Valium inj) 5 mg ONCE ONCE IV 01/09/25 07:35 01/09/25 07:37 DC 01/09/25 07:46 5 MG (morphine inj.) 4 mg ONCE ONCE IV 01/09/25 07:35 01/09/25 07:37 DC 01/09/25 07:43 4 MG (thiamine inj.) 100 mg ONCE ONCE IV 01/09/25 07:35 01/09/25 07:37 DC 01/09/25 07:44 100 MG (folic acid inj.) 1 mg ONCE ONCE IV 01/09/25 07:35 01/09/25 07:37 DC 01/09/25 07:51 1 MG Vital Signs 01/09/25 01/09/25 01/09/25 01/09/25 00:15 03:00 03:01 04:14 Temp 98.8 Pulse 142 88 90 Resp 16 16 B/P (MAP) 157/97 124/90 (101) 124/90 (101) Pulse Ox 92 97 95 O2 Flow Rate 0 0 01/09/25 01/09/25 01/09/25 01/09/25 05:39 06:12 06:33 07:43 Pulse 102 98 88 Resp 16 20 22 15 B/P (MAP) 119/83 (95) 121/79 (93) 127/92 (104) Pulse Ox 97 96 99 O2 Flow Rate 0 0 Laboratory Tests Test 01/09/25 02:13 01/09/25 02:31 01/09/25 07:44 White Blood Count 4.8 Red Blood Count 4.60 Hemoglobin 15.0 Hematocrit 43.9 Mean Corpuscular Volume 95.4 Mean Corpuscular Hemoglobin 32.5 H Mean Corpuscular Hemoglobin Concent 34.1 Red Cell Distribution Width 14.8 H Platelet Count 153 Mean Platelet Volume 6.9 L Neutrophils (%) (Auto) 74.6 Lymphocytes (%) (Auto) 20.1 L Monocytes (%) (Auto) 4.4 Eosinophils (%) (Auto) 0.1 Basophils (%) (Auto) 0.8 Neutrophils # (Auto) 3.6 Lymphocytes # (Auto) 1.0 L Monocytes # (Auto) 0.2 Eosinophils # (Auto) 0.0 Basophils # (Auto) 0.0 CBC Comment Sodium Level 135 Potassium Level 4.3 Chloride Level 96 L Carbon Dioxide Level 24.3 Anion Gap 15 Blood Urea Nitrogen 13 Creatinine 0.61 Estimated GFR/1.73 m2 > 90 BUN/Creatinine Ratio 21.3 H Glucose Level 113 H Calcium Level 8.0 L Magnesium Level 1.7 Total Bilirubin 0.6 Aspartate Amino Transf (AST/SGOT) 280 H Alanine Aminotransferase (ALT/SGPT) 144 H Alkaline Phosphatase 151 H Total Protein 8.6 H Albumin 4.5 Globulin 4.1 Albumin/Globulin Ratio 1.1 Lipase > 375 H Chemistry Comments Ethyl Alcohol Level 415 *H Hemoglobin A1c 4.7 Urine Specimen Description Urinal Urine Color Yellow Urine Clarity Slightly cloudy Urine pH 6.0 Urine Specific [place] >=1.030 Urine Protein 100 H Urine Glucose (UA) Negative Urine Ketones 40 H Urine Occult Blood Small Urine Nitrite Negative Urine Bilirubin Negative Urine Urobilinogen 0.2 Urine Leukocyte Esterase Negative Urine RBC 3-10 Urine WBC 0-4 Urine Squamous Epithelial Cells Many Urine Transitional Epithelial Cells Few Urine Renal Cells Few Urine Bacteria 2+ Urine Mucus Few Urine Culture Indicated Not ind Volume Urine Centrifuged 10 ml Urine HCG, Qualitative Negative Urine Comment Urine Opiates Screen Positive Urine Methadone Screen Negative Urine Fentanyl Screen Negative Urine Barbiturates Screen Negative Urine Phencyclidine Screen Negative Urine Amphetamines Screen Negative Urine Benzodiazepines Screen Positive Urine Cocaine Screen Negative Urine Cannabinoids Screen Negative Drug Screen Comment Medical Decision Making Additional Comment 24-year-old female presenting with initially severe alcohol intoxication. ETOH level elevated above 400. Additionally the patient has developed acute pancreatitis as her lipase is very elevated and she has severe abdominal pain. Patient started to exhibit signs of withdrawal as well as she became tremulous. Patient medicated with 2 L of IV normal saline. Given 5 mg of IV Valium. 4 mg of IV morphine and 4 mg of IV Zofran. IV thiamine and folate started as well. She will need admission for further treatment and care. Departure Disposition: ADMITTED INPATIENT Admitted to Inpatient Unit: to hospitalist Admission Level of Care: Med/Surg with Tele Impression: Primary Impression: Acute pancreatitis Additional Impressions: Alcohol intoxication Alcohol withdrawal syndrome Condition: Guarded Referrals: NO PRIMARY CARE PROVIDER (PCP) Signature Scribe Signature: 1 Attestation: 1 WYATT GRANADOS MD Jan 09, 2025 07:38
[2025-01-09] MEDS: morphine 4 MG/ML inj SYRINge IV ONE (07:43)
[2025-01-09] MEDS: thiamine 100mg/ml 2ml inj. IV ONE (07:44)
[2025-01-09] MEDS: diazepam inj 5 MG/ML inj. IV ONE ×4 (07:46→18:36)
[2025-01-09] MEDS ORDERED: magnesium sulf-water 4G/100mL 100 ML IV PRN (07:50)
[2025-01-09] MEDS ORDERED: morphine 2 MG/ML inj. syringe IV PRN ×2 (07:50)
[2025-01-09] MEDS ORDERED: mag hydrox/Alum hydrox/simeth 30ml oral suspension PO PRN (07:50)
[2025-01-09] MEDS ORDERED: magnesium hydroxide 30ml (MOM) UD suspension PO PRN (07:50)
[2025-01-09] MEDS ORDERED: magnesium sulf-water 2g/50mL 50 ML IV PRN (07:50)
[2025-01-09] MEDS ORDERED: acetaminophen 325mg tablet PO PRN (07:50)
[2025-01-09] MEDS ORDERED: potassium Cl 20 mEq SR tablet PO PRN (07:50)
[2025-01-09] MEDS ORDERED: HYDROcodone/acetaminophen 10/325mg tab PO PRN (07:50)
[2025-01-09] MEDS ORDERED: HYDROcodone/acetaminophen 5mg/325mg tablet PO PRN (07:50)
[2025-01-09] MEDS ORDERED: potassium Cl 40MEQ/1/2NS 520ml 520 ML IV PRN (07:50)
[2025-01-09] MEDS: folic acid 1mg/0.2ml inj IV ONE (07:51)
--- NOTE | 2025-01-09 07:52 | HISTORY AND PHYSICAL-Residence ---
History & Physical Providers to CC Resident Creating Document: RM SHUKLAMyriam GARBERIS, RES ~ History of Present Illness Primary Medical Doctor: Sandeep Garcia Reason for Admit\Complaint: Abdominal pain History of Present Illness PCP: Sandeep Garcia 24-year-old female patient with past medical history of alcohol use disorder, borderline personality disorder, ADHD came to the hospital with chief complaint of abdominal pain. As per patient the pain is localized at the level of the epigastrium, radiation to the back, 10/10 in intensity, described as a sharp type stabbing pain. As per patient this is the 1st time that she has a experienced symptoms like this. Associated to these symptoms she also endorses nausea and vomiting which started approximately two weeks ago, she endorses one episode of hematemesis described as a bright red vomit experienced yesterday. Previous to that all his episodes of vomiting where food type. The patient currently denies any chest pain shortness of breath palpitations, urinary or intestinal symptoms. Allergies: Coded Allergies: Penicillins (Verified Allergy, Unknown, 06/01/18) amoxicillin (Verified Allergy, Unknown, 06/01/18) Home Medications Home Medications Active Ativan (Lorazepam) 1 Mg Tablet 1 Tab PO Q12H PRN PRN Past Medical History Past Medical History Alcohol use disorder. Borderline personality disorder. ADHD. Past Surgical History Surgical History Comment None Past Social History Smoking: Other (The patient stated that she is currently vaping with nicotine since she was 19 years old.) Alcohol Use: Heavy (The patient states that she drinks 1/5 a day of vodka on and off but lately she has been drinking for the last two months.) Drug Use: Marijuana, Methamphetamine, Cocaine, Other Lives with: Alone Lives In: Home Occupation: unemployed (Not Studying or working.) ROS All Other Systems: Reviewed and Negative Exam Vitals: Vital Signs Date Time Temp Pulse Resp B/P (MAP) Pulse Ox O2 Delivery O2 Flow Rate FiO2 01/09/25 07:43 15 01/09/25 06:33 88 127/92 (104) 99 01/09/25 06:12 0 01/09/25 00:15 98.8 Physical exam: General: Well alert, well oriented, not confused, moderately agitated, well cooperated during the physical. HEENT: Conjunctive are pink, sclerae clear, no icterus, pupil is equal in both sides, reactive to light, no ear discharge, no pharyngeal erythema or an edema. Neck: Supple, no JVD, no lymphadenopathy and thyromegaly. Chest: Equal air entry on both lungs, no additional sounds no rhonchi no wheezing at the moment. Cardiovascular: S1-S2 regular sinus rhythm and, regular rate, no gallops, no rubs, no murmurs Abdomen: No visible peristalsis, Bowel sounds present on auscultation, soft, tenderness at level of the epigastrium with mild palpation, no guarding, no rigidity Extremities: No obvious deformities, no pitting edema bilaterally, capillary refill intact, peripheral pulsations are intact on both sides, presence of generalized shakiness. Central Nervous System: No focal neurological deficits, no motor or sensory weakness in all 4 extremities, could move all 4 extremities, 2+ deep tendon reflexes, negative Babinski. Musculoskeletal: No joint swelling, deformities, inflammations, and no scoliosis and back tenderness Skin: Warm and dry. Diagnostic Data Last Recorded Lab Results: 01/09/2521201/09/25212 Advance Care Planning Advanced Care plannin - 30 Minutes (I spent a total of 17 minutes on reviewing various resuscitative measures/ACP with the patient at the time of admission. The patient has decided on a full code status.) Additional Plan Assessment and plan: 24 years old female patient came to the hospital with chief complaint of abdominal pain. Abdominal pain: Acute alcoholic pancreatitis: The patient came to the hospital with chief complaint of abdominal pain localized in the level of the epigastrium. Lipase levels: > 375. Follow-up trended lipase levels. Abdominal ultrasound: The pancreas is not well visualized due to overlying bowel gas. Pain control with Dilaudid 0.5 mg for moderate pain and 1 mg for severe pain. The patient states allergy to [place]. Ringer lactated at 150 mL/hour. Ondansetron 0.4 mg q.6h as needed for nausea and vomiting. On clear liquid diet. To be progressed as tolerated. Alcohol withdrawal: CIWA score: 17 points: Alcohol levels: 415. On alcohol withdrawal protocol. On lorazepam and Haldol. U tox: Negative for cocaine, amphetamines or marijuana. On thiamine 200 mg IV t.i.d. On folic acid 1 mg IV daily. fire services plumber consulted. Substance use navigator consulted. Transaminitis: Hepatic steatosis: Abdominal ultrasound: Hepatomegaly and hepatic steatosis. AST 280, ALT 144, alkaline phosphatase 151, total bilirubin levels within reference range. Continue monitoring CMP. Code status: Full code DVT prophylaxis: SCDs Analgesia/sedation: Ativan/Haldol/Dilaudid Line/tube: PIV GI prophylaxis: Protonix. Nutrition: Clear liquid diet. PT: Ordered Prognosis: Guarded Disposition: The patient will be admitted to ortho floor. Law Perry Internal Medicine Resident [facility] Date of Service: Jan 09, 2025 Billing Provider: KAISER MELENDEZ MD Common Visit Codes: [id number] INP/OBS CARE (HIGH) Secondary Visit Codes: [id number] CARE PLAN 30 MINUTES LAW SHUKLA, RES Jan 09, 2025 07:52 KAISER MELENDEZ MD Jan 11, 2025 07:26
[2025-01-09] MEDS ORDERED: cloNIDine 0.1 mg tablet PO PRN (07:55)
[2025-01-09] MEDS ORDERED: haloperidol 5mg tablet PO PRN (07:55)
[2025-01-09] MEDS ORDERED: haloperidol lactate 5mg/ml inj IM PRN (07:55)
[2025-01-09] MEDS: thiamine 100mg/ml 2ml inj. IV SCH (08:00)
[2025-01-09] MEDS: K and/or MAG REPLACEMENT MC SCH (08:00)
[2025-01-09] MEDS: folic acid 1mg/0.2ml inj IV SCH (08:00)
[2025-01-09 08:52] LABS: MAGNESIUM 1.7 MG/DL (1.5-2.4)
[2025-01-09] MEDS: multivitamins, therapeutics tablet PO SCH (09:07)
[2025-01-09] MEDS: LORazepam 2 mg/ml vial IV PRN (09:08)
[2025-01-09] MEDS: ringers solution, lacted 1,000 ML IV SCH (09:10)
[2025-01-09 09:11] LABS: BILIRUBIN,URINE NEGATIVE (Neg); CLARITY,URINE SLIGHTLY CLOUDY (Clear); COLOR,URINE YELLOW (Yellow); GLUCOSE, URINE NEGATIVE (Neg); KETONES,URINE 40 mg/dl (Neg); LEUKOCYTE ESTERASE ,URINE NEGATIVE (Neg); NITRITES, URINE NEGATIVE (Neg); OCCULT BLOOD,URINE SMALL (Neg); PROTEIN,URINE 100 mg/dl (Neg); UROBILINOGEN,URINE 0.2 E.U/dL (0.2-1.0)
[2025-01-09 09:12] LABS: URINE HCG NEGATIVE (NEG)
--- NOTE | 2025-01-09 09:18 | RADIOLOGY REPORT ---
INDICATION: abdominal pain, elevated LFT TECHNIQUE: Multiple real-time sonographic images were obtained of the right upper quadrant. COMPARISON: US ULTRASOUND OF ABDOMEN on DOS: 11/14/24 FINDINGS: The liver demonstrates homogeneous echotexture without focal mass lesions. The liver measu res 18.6 cm. There is no intrahepatic or extrahepatic ductal dilatation. The common duct measures 0.2 cm. The gallbladder is without evidence of stone or sludge. The gallbladder wall measures 0.1 cm and is w ithin normal limits. The right kidney measures 10.8 cm. The right kidney is normal in contour, size, and shape. The echoge nicity is normal. There is no hydronephrosis. The pancreas is not well visualized due to overlying bowel gas. IMPRESSION: Hepatomegaly and hepatic steatosis.
[2025-01-09 09:19] LABS: UA COLLECTION TYPE URINAL
[2025-01-09 09:21] LABS: BACTERIA,URINE 2+ /HPF (Neg); MUCUS STRANDS FEW /LPF (Neg); RENAL CELLS, URINE FEW /HPF; SQUAMOUS EPITHELIAL CELL,UR MANY /LPF (FEW); TRANSITIONAL EPI CELLS,URINE FEW /HPF; WBC,URINE 0-4 /HPF (0-4)
[2025-01-09 09:23] LABS: URINE AMPHETAMINE SCREEN NEGATIVE (Neg); URINE BARBITUATE SCREEN NEGATIVE (Neg); URINE BENZODIAZEPINES SCREEN POSITIVE (Neg); URINE CANNABINOID SCREEN NEGATIVE (Neg); URINE COCAINE SCREEN NEGATIVE (Neg); URINE METHADONE SCREEN NEGATIVE (Neg); URINE OPIATE SCREEN POSITIVE (Neg); URINE PHENCYCLIDINE SCREEN NEGATIVE (Neg)
[2025-01-09] MEDS: HYDROmorphone inj. 0.5 MG/0.5 ML DISP.SYRIN IV ONE (10:47)
[2025-01-09] MEDS: ondansetron/PF 4mg/2ml inj IV PRN (12:38)
[2025-01-09 13:00] VITALS: BP 137/94; PULSE 109; RESP 12; TEMP 97.7; O2SAT 98
[2025-01-09] MEDS ORDERED: no meds (13:51)
[2025-01-09] MEDS: HYDROmorphone inj. 0.5 MG/0.5 ML DISP.SYRIN IV PRN (16:55)
[2025-01-09 18:00] VITALS: BP 124/83; PULSE 99; RESP 17; TEMP 99.2; O2SAT 95
[2025-01-09 22:00] VITALS: BP 132/99; PULSE 100; RESP 16; TEMP 98.3; O2SAT 97
[2025-01-10] MEDS: diazepam inj 5 MG/ML inj. IV PRN (00:17)
[2025-01-10 05:37] LABS: BASOPHILS % (AUTO) 0.6 % (0-1); EOSINOPHILS % (AUTO) 0.5 % (0-6); HEMATOCRIT 36.9 % (35.0-45.0); HEMOGLOBIN 12.5 g/dl (12.0-16.0); LYMPHOCYTES # (AUTO) 0.8 X10'3 (1.1-4.8); LYMPHOCYTES % (AUTO) 17.3 % (21-51); MEAN CORPUSCULAR HEMOGLOBIN 32.7 PG (27.0-31.0); MEAN CORPUSCULAR HGB CONC 33.8 g/dL (33.0-36.5); MEAN CORPUSCULAR VOLUME 96.9 FL (78-98); MEAN PLATELET VOLUME 7.5 FL (7.4-10.4); MONOCYTES # (AUTO) 0.5 X10'3 (0-0.9); MONOCYTES % (AUTO) 11.5 % (2-12); NEUTROPHILS # (AUTO) 3.2 X10'3 (1.8-7.7); NEUTROPHILS % (AUTO) 70.1 % (42-75); PLATELET COUNT 86 X10'3 (140-440); RED BLOOD COUNT 3.81 X10'6 (4.20-5.60); RED CELL DISTRIBUTION WIDTH 14.1 % (11.5-14.5); WHITE BLOOD COUNT 4.5 X10'3 (4.5-11.0)
[2025-01-10 05:54] LABS: INR 1.3 INR; PROTHROMBIN TIME 13.3 SECONDS (9.0-12.0)
[2025-01-10 06:00] VITALS: BP 130/98; PULSE 88; RESP 14; TEMP 97.4; O2SAT 96
[2025-01-10 06:20] LABS: ALANINE AMINOTRANSFERASE 87 U/L (12-78); ALBUMIN 3.6 G/DL (3.4-5.0); ALBUMIN/GLOBULIN RATIO 1.2 (1.1-1.5); ALKALINE PHOSPHATASE 100 IU/L (46-116); AMYLASE 602 U/L (25-115); ANION GAP 9 (8-16); ASPARTATE AMINO TRANSFERASE 172 U/L (10-37); BILIRUBIN,TOTAL 1.7 MG/DL (0.1-1.0); BLOOD UREA NITROGEN 7 MG/DL (7-18); BUN/CREATININE RATIO 13.7 (10.0-20.0); CALCIUM 8.1 MG/DL (8.5-10.1); CHLORIDE 93 MMOL/L (99-107); CREATININE 0.51 MG/DL (0.40-0.90); GLUCOSE 90 MG/DL (70-104); MAGNESIUM 1.1 MG/DL (1.5-2.4); PHOSPHORUS 2.3 MG/DL (2.3-4.5); POTASSIUM 3.9 MMOL/L (3.5-5.1); SODIUM 131 MMOL/L (135-145); TOTAL CARBON DIOXIDE 28.9 MMOL/L (24-32); TOTAL PROTEIN 6.6 G/DL (6.4-8.2); eCRCL 140 ML/MIN; eGFR > 90 ML/MIN
[2025-01-10 06:25] LABS: LIPASE > 375 U/L (16-77)
[2025-01-10] MEDS: magnesium sulf-water 2g/50mL 50 ML IV ONE (07:31)
[2025-01-10] MEDS: pantoprazole 40mg Tablet.DR PO SCH (07:32)
[2025-01-10 07:53] LABS: CHOL/HDL RATIO 2.7 (0.00-4.99); CHOLESTEROL 180 MG/DL (0-200); HDL CHOLESTEROL 66 MG/DL (35-60); LDL CHOLESTEROL 61 MG/DL (50-100); TRIGLYCERIDES 42 MG/DL (20-135)
[2025-01-10 10:00] VITALS: BP 129/98; PULSE 95; RESP 16; TEMP 99.1; O2SAT 97
[2025-01-10] MEDS ORDERED: ibuprofen tablet 400 MG TABLET PO PRN (10:15)
--- NOTE | 2025-01-10 13:51 | PROGRESS NOTE- Residence ---
Progress Note - Resident Providers to CC Resident Creating Document: JV SHUKLA, RES ~ Antibiotic Timeout Antibiotic Ordered?: No Subjective The patient has been evaluated at bedside. Patient states still feeling pain in epigastrium radiating to her back, partially relieved with pain medication. Patient refers still having nausea and vomiting, asks to progress from liquid to solid diet. Objective Vital Signs Date Time Temp Pulse Resp B/P (MAP) Pulse Ox O2 Delivery O2 Flow Rate FiO2 01/10/25 13:00 16 01/10/25 08:00 Room Air 01/10/25 06:00 83 01/10/25 06:00 97.4 130/98 (109) 96 01/09/25 20:00 0.0 Physical exam: General: Well alert, well oriented, not confused, slightly agitated, well cooperated during the physical. HEENT: Conjunctive are pink, sclerae clear, no icterus, pupil is equal in both sides, reactive to light, no ear discharge, no pharyngeal erythema or an edema. Neck: Supple, no JVD, no lymphadenopathy and thyromegaly. Chest: Equal air entry on both lungs, no additional sounds no rhonchi no wheezing at the moment. Cardiovascular: S1-S2 regular sinus rhythm and, regular rate, no gallops, no rubs, no murmurs Abdomen: No visible peristalsis, Bowel sounds present on auscultation, soft, tenderness at level of the epigastrium with mild palpation, no guarding, no rigidity Extremities: No obvious deformities, no pitting edema bilaterally, capillary refill intact, peripheral pulsations are intact on both sides, presence of generalized shakiness. Central Nervous System: No focal neurological deficits, no motor or sensory weakness in all 4 extremities, could move all 4 extremities, 2+ deep tendon reflexes, negative Babinski. Musculoskeletal: No joint swelling, deformities, inflammations, and no scoliosis and back tenderness Skin: Warm and dry. Result Diagram: 01/10/25 0513 01/10/25 0513 Coagulation Studies Laboratory Tests Test 01/10/25 05:13 Prothrombin Time 13.3 SECONDS (9.0-12.0) H INR International Normalized Ratio 1.3 INR Coagulation Comments Assessment Assessment 24 years old female patient came to the hospital with chief complaint of abdominal pain. Plan Plan Acute alcoholic pancreatitis: The patient came to the hospital with chief complaint of abdominal pain localized in the level of the epigastrium. Lipase levels: > 375. Follow-up trended lipase levels. Abdominal ultrasound: The pancreas is not well visualized due to overlying bowel gas. Pain control with Dilaudid 0.5 mg for moderate pain and 1 mg for severe pain. The patient states allergy to [place]. Ringer lactated at 150 mL/hour. Ondansetron 0.4 mg q.6h as needed for nausea and vomiting. On clear liquid diet. To be progressed as tolerated. 01/10/25: Patient still having epigastric pain. Episodic vomiting, some with small amounts of blood Ondansentron 4mg before meals Progressed to solid diet as requested Ringer lactate at 100mL/h. On ibuprofen p.o. t.i.d. Alcohol withdrawal: CIWA score: 17 points on admission: Alcohol levels: 415. On alcohol withdrawal protocol. On lorazepam and Haldol. U tox: Negative for cocaine, amphetamines or marijuana. On thiamine 200 mg IV t.i.d. On folic acid 1 mg IV daily. adult services librarian consulted. Substance use navigator consulted. 01/10/25: CIWA score: Two points. No symptom of alcohol withdraw today. Will maintain diazepam and haldol. Patient instructed to refrain from alcohol use. Transaminitis: Hepatic steatosis: Abdominal ultrasound: Hepatomegaly and hepatic steatosis. AST 280, ALT 144, alkaline phosphatase 151, total bilirubin levels within reference range. Continue monitoring CMP. 01/10/25: AST: 172, ALT 87-trending down. Continue monitoring CMP. Code status: Full code DVT prophylaxis: SCDs Analgesia/sedation: Diazepam/Haldol/Dilaudid Line/tube: PIV GI prophylaxis: Protonix. Nutrition: Clear liquid diet. PT: Ordered Prognosis: Guarded Disposition: The patient will be discharged home as soon as it tolerates solid food and lowers pain level. Jv Perry Internal Medicine Resident [facility] Date of Service: Jan 10, 2025 Billing Provider: KAISER MELENDEZ MD Common Visit Codes: [id number] INP/OBS CARE(HIGH) JV SHUKLA, RES Jan 10, 2025 13:51 KAISER MELENDEZ MD Jan 11, 2025 07:27
[2025-01-10] MEDS: ibuprofen tablet 400 MG TABLET PO SCH (16:36)
[2025-01-10] MEDS: ondansetron/PF 4mg/2ml inj IV SCH (16:36)
[2025-01-10 18:00] VITALS: BP 122/82; PULSE 78; RESP 16; TEMP 99.1; O2SAT 96
[2025-01-10] MEDS: HYDROmorphone/PF 0.2 MG/ML SYRINGE IV PRN (19:41)
[2025-01-10 22:00] VITALS: BP 124/99; PULSE 81; RESP 14; TEMP 98.5; O2SAT 97
[2025-01-11 06:00] VITALS: BP 130/90; PULSE 95; RESP 16; TEMP 98; O2SAT 99
[2025-01-11 06:15] LABS: BASOPHILS % (AUTO) 0.4 % (0-1); EOSINOPHILS % (AUTO) 1.2 % (0-6); HEMATOCRIT 36.6 % (35.0-45.0); HEMOGLOBIN 12.3 g/dl (12.0-16.0); INR 1.3 INR; LYMPHOCYTES # (AUTO) 0.5 X10'3 (1.1-4.8); LYMPHOCYTES % (AUTO) 15.4 % (21-51); MEAN CORPUSCULAR HEMOGLOBIN 32.8 PG (27.0-31.0); MEAN CORPUSCULAR HGB CONC 33.6 g/dL (33.0-36.5); MEAN CORPUSCULAR VOLUME 97.8 FL (78-98); MEAN PLATELET VOLUME 8.7 FL (7.4-10.4); MONOCYTES # (AUTO) 0.3 X10'3 (0-0.9); MONOCYTES % (AUTO) 8.4 % (2-12); NEUTROPHILS # (AUTO) 2.5 X10'3 (1.8-7.7); NEUTROPHILS % (AUTO) 74.6 % (42-75); PLATELET COUNT 75 X10'3 (140-440); PROTHROMBIN TIME 13.1 SECONDS (9.0-12.0); RED BLOOD COUNT 3.75 X10'6 (4.20-5.60); RED CELL DISTRIBUTION WIDTH 14.2 % (11.5-14.5); WHITE BLOOD COUNT 3.4 X10'3 (4.5-11.0)
[2025-01-11 06:36] LABS: ALANINE AMINOTRANSFERASE 82 U/L (12-78); ALBUMIN 3.4 G/DL (3.4-5.0); ALKALINE PHOSPHATASE 128 IU/L (46-116); AMYLASE 290 U/L (25-115); ANION GAP 13 (8-16); ASPARTATE AMINO TRANSFERASE 154 U/L (10-37); BILIRUBIN,TOTAL 1.1 MG/DL (0.1-1.0); BLOOD UREA NITROGEN 4 MG/DL (7-18); BUN/CREATININE RATIO 7.5 (10.0-20.0); CALCIUM 8.3 MG/DL (8.5-10.1); CHLORIDE 95 MMOL/L (99-107); CREATININE 0.53 MG/DL (0.40-0.90); GLUCOSE 70 MG/DL (70-104); MAGNESIUM 1.8 MG/DL (1.5-2.4); PHOSPHORUS 1.7 MG/DL (2.3-4.5); POTASSIUM 3.5 MMOL/L (3.5-5.1); SODIUM 134 MMOL/L (135-145); TOTAL CARBON DIOXIDE 25.6 MMOL/L (24-32); TOTAL PROTEIN 6.7 G/DL (6.4-8.2); eCRCL 135 ML/MIN; eGFR > 90 ML/MIN
[2025-01-11 06:40] LABS: LIPASE > 375 U/L (16-77)
[2025-01-11 07:15] VITALS: RESP 16
[2025-01-11] MEDS ORDERED: LORazepam 1 MG tablet PO PRN (07:55)
[2025-01-11] MEDS ORDERED: LORazepam 2 mg/ml vial IV PRN (07:55)
[2025-01-11] MEDS ORDERED: HYDROcodone/acetaminophen 10/325mg tab PO PRN (11:10)
[2025-01-11] MEDS: HYDROcodone/acetaminophen 10/325mg tab PO PRN (12:47)
--- NOTE | 2025-01-11 15:13 | PROGRESS NOTE- Residence ---
Progress Note - Resident Providers to CC Resident Creating Document: JV SHUKLA, RES ~ Antibiotic Timeout Antibiotic Ordered?: No Subjective The patient has been evaluated at the bedside. Patient still reports epigastric and back pain 6/10 in intensity. Tolerating food. Objective Vital Signs Date Time Temp Pulse Resp B/P (MAP) Pulse Ox O2 Delivery O2 Flow Rate FiO2 01/11/25 13:55 16 01/11/25 06:00 98.0 95 130/90 (103) 99 Room Air 01/09/25 20:00 0.0 Physical exam: General: Well alert, well oriented, not confused, slightly agitated, well cooperated during the physical. HEENT: Conjunctive are pink, sclerae clear, no icterus, pupil is equal in both sides, reactive to light, no ear discharge, no pharyngeal erythema or an edema. Neck: Supple, no JVD, no lymphadenopathy and thyromegaly. Chest: Equal air entry on both lungs, no additional sounds no rhonchi no wheezing at the moment. Cardiovascular: S1-S2 regular sinus rhythm and, regular rate, no gallops, no rubs, no murmurs Abdomen: No visible peristalsis, Bowel sounds present on auscultation, soft, tenderness at level of the epigastrium with mild palpation, no guarding, no rigidity Extremities: No obvious deformities, no pitting edema bilaterally, capillary refill intact, peripheral pulsations are intact on both sides, presence of shakiness in bilateral upper extremities. Central Nervous System: No focal neurological deficits, no motor or sensory weakness in all 4 extremities, could move all 4 extremities, 2+ deep tendon reflexes, negative Babinski. Musculoskeletal: No joint swelling, deformities, inflammations, and no scoliosis and back tenderness Skin: Warm and dry. Result Diagram: 01/11/25 0510 01/11/25 0510 Coagulation Studies Laboratory Tests Test 01/11/25 05:10 Prothrombin Time 13.1 SECONDS (9.0-12.0) H INR International Normalized Ratio 1.3 INR Coagulation Comments Assessment Assessment 24 years old female patient came to the hospital with chief complaint of abdominal pain. Plan Plan Acute alcoholic pancreatitis: The patient came to the hospital with chief complaint of abdominal pain localized in the level of the epigastrium. Lipase levels: > 375. Follow-up trended lipase levels. Abdominal ultrasound: The pancreas is not well visualized due to overlying bowel gas. Pain control with Dilaudid 0.5 mg for moderate pain and 1 mg for severe pain. The patient states allergy to [place]. Ringer lactated at 150 mL/hour. Ondansetron 0.4 mg q.6h as needed for nausea and vomiting. On clear liquid diet. To be progressed as tolerated. 01/10/25: Patient still having epigastric pain. Episodic vomiting, some with small amounts of blood Ondansentron 4mg before meals Progressed to solid diet as requested Ringer lactate at 100mL/h. 01/11/2025: The patient still reports epigastric pain. Starting [place] 10 mg q.4h p.o. p.r.n. Dilaudid IV 0.2 mg q.4h PRN IV for breakthrough pain. Continue IV fluids. Alcohol withdrawal: CIWA score: 17 points on admission: Alcohol levels: 415. On alcohol withdrawal protocol. On lorazepam and Haldol. U tox: Negative for cocaine, amphetamines or marijuana. On thiamine 200 mg IV t.i.d. On folic acid 1 mg IV daily. social services director consulted. Substance use navigator consulted. 01/10/25: CIWA score: Two points. No symptom of alcohol withdraw today. Will maintain diazepam and haldol. Patient instructed to refrain from alcohol use. 01/11/2025: CIWA score : 4 points. Resources given from addiction social worker. Continue thiamine and folic acid. Diazepam 5 mg q.4h PRN for anxiety. Transaminitis-trending down: Hepatic steatosis: Abdominal ultrasound: Hepatomegaly and hepatic steatosis. Continue monitoring CMP. Code status: Full code DVT prophylaxis: SCDs Analgesia/sedation: Diazepam/Haldol/Dilaudid/[place] Line/tube: PIV GI prophylaxis: Protonix. Nutrition: Regular diet. PT: Ordered Prognosis: Guarded Disposition: We will continue medical management. Anticipated discharge tomorrow. Jv Perry Internal Medicine Resident [facility] Date of Service: Jan 11, 2025 Billing Provider: KAISER MELENDEZ MD Common Visit Codes: [id number] INP/OBS CARE(HIGH) JV SHUKLA, RES Jan 11, 2025 15:13 KAISER MELENDEZ MD Jan 12, 2025 07:12
[2025-01-11 18:00] VITALS: BP 126/91; PULSE 71; RESP 18; TEMP 97.2; O2SAT 100
[2025-01-11 22:00] VITALS: BP 120/94; PULSE 80; RESP 15; TEMP 98.5; O2SAT 99
[2025-01-12 05:32] LABS: BASOPHILS % (AUTO) 0.6 % (0-1); EOSINOPHILS # (AUTO) 0.1 X10'3 (0-0.9); EOSINOPHILS % (AUTO) 2.3 % (0-6); HEMATOCRIT 32.9 % (35.0-45.0); HEMOGLOBIN 11.2 g/dl (12.0-16.0); LYMPHOCYTES % (AUTO) 28.1 % (21-51); MEAN CORPUSCULAR HEMOGLOBIN 32.7 PG (27.0-31.0); MEAN CORPUSCULAR HGB CONC 34.1 g/dL (33.0-36.5); MEAN CORPUSCULAR VOLUME 96.1 FL (78-98); MEAN PLATELET VOLUME 8.3 FL (7.4-10.4); MONOCYTES # (AUTO) 0.3 X10'3 (0-0.9); MONOCYTES % (AUTO) 9.5 % (2-12); NEUTROPHILS % (AUTO) 59.5 % (42-75); PLATELET COUNT 76 X10'3 (140-440); RED BLOOD COUNT 3.43 X10'6 (4.20-5.60); WHITE BLOOD COUNT 3.4 X10'3 (4.5-11.0)
[2025-01-12 05:40] LABS: INR 1.3 INR; PROTHROMBIN TIME 12.7 SECONDS (9.0-12.0)
[2025-01-12 06:00] VITALS: BP 117/74; PULSE 65; RESP 16; TEMP 96.7; O2SAT 99
[2025-01-12 06:01] LABS: ALANINE AMINOTRANSFERASE 63 U/L (12-78); ALBUMIN 3.1 G/DL (3.4-5.0); ALKALINE PHOSPHATASE 147 IU/L (46-116); AMYLASE 185 U/L (25-115); ANION GAP 9 (8-16); ASPARTATE AMINO TRANSFERASE 94 U/L (10-37); BILIRUBIN,TOTAL 0.8 MG/DL (0.1-1.0); BLOOD UREA NITROGEN 4 MG/DL (7-18); BUN/CREATININE RATIO 7.1 (10.0-20.0); CALCIUM 8.1 MG/DL (8.5-10.1); CHLORIDE 99 MMOL/L (99-107); CREATININE 0.56 MG/DL (0.40-0.90); GLUCOSE 86 MG/DL (70-104); MAGNESIUM 1.4 MG/DL (1.5-2.4); PHOSPHORUS 2.4 MG/DL (2.3-4.5); POTASSIUM 3.2 MMOL/L (3.5-5.1); SODIUM 135 MMOL/L (135-145); TOTAL CARBON DIOXIDE 27.1 MMOL/L (24-32); TOTAL PROTEIN 6.2 G/DL (6.4-8.2); eCRCL 127 ML/MIN; eGFR > 90 ML/MIN
[2025-01-12 06:19] LABS: LIPASE > 375 U/L (16-77)
[2025-01-12] MEDS: potassium Cl 20 mEq SR tablet PO PRN (06:31)
[2025-01-12] MEDS: thiamine 100mg tablet PO SCH (07:00)
[2025-01-12] MEDS: magnesium Cl slow-release 64mg tablet PO PRN (07:01)
[2025-01-12] MEDS ORDERED: HYDR-3973 PO ×2 (07:39→21:47)
[2025-01-12] MEDS ORDERED: LORA-269 PO (07:39)
--- NOTE | 2025-01-12 13:50 | DISCHARGE SUMMARY-Residence ---
Discharge Summary Providers to Resident Creating Document: LAW SHUKLA, RES ~ Discharge Summary Admission Diagnosis: Abdominal pain Hospital Course DATE OF ADMISSION: 01/09/2025 DATE OF DISCHARGE: 01/12/2025 Discharge Diagnosis\Comment: Acute alcoholic pancreatitis Alcohol withdrawal CIWA score: 17 points on admission Hepatic steatosis Operations\Procedures: none Consultants: none Complications: none Condition on DC: Stable New Medications: Hydrocodone Bit/Acetaminophen (Hydrocodone-Apap 10-325 Tablet) 10mg/325mg Tablet 1 TAB PO QID PRN PRN for pain for 5 Days, #20 TAB Lorazepam (Ativan) 1 Mg Tablet 1 TAB PO Q8H for anxiety, #14 TAB 0 Refills Discontinued Medications: [no meds] () Discharge Summary: HPI: PCP: Sandeep Garcia 24-year-old female patient with past medical history of alcohol use disorder, borderline personality disorder, ADHD came to the hospital with chief complaint of abdominal pain. As per patient the pain is localized at the level of the epigastrium, radiation to the back, 10/10 in intensity, described as a sharp type stabbing pain. As per patient this is the 1st time that she has a experienced symptoms like this. Associated to these symptoms she also endorses nausea and vomiting which started approximately two weeks ago, she endorses one episode of hematemesis described as a bright red vomit experienced yesterday. Previous to that all his episodes of vomiting where food type. The patient currently denies any chest pain shortness of breath palpitations, urinary or intestinal symptoms. Hospital Course: 24 years old female patient was admitted with acute alcoholic pancreatitis and alcohol withdrawal. On admission the patient described abdominal pain at the level of the epigastrium with radiation to the lumbar back. initially described as a 100/10 in intensity. The patient was started in aggressive hydration based on ringer lactated, pain medication based on dilaudid and norco and clear liquid diet to control symptoms of acute pancreatitis. Associated to this the patient also experienced symptoms of alcohol withdrawal for which the patient was started on benzodiazepines based on diazepam. Upon the following day the patient reported significant improvement of symptoms and pain. tolerated diet. The patient remained hemodinamically stable. client services assistant provided resources. The patient will be discharged home. Discharge course: The patient will be discharged with the following instructions: Come back to the Emergency department or call 911 if severe chest pain, agitation, anxiety, hallucinations, fever sensation is evidenced. Take ativan 1 mg every 8 hour as needed for anxiety. Take 1 tablet of norco every 6 hour as needed for pain. Keep well hydrated. Strong recommendation to stop alcohol consumption. Follow up with your primary care physician within 2 weeks. Physical exam: General: Well alert, well oriented, not confused, slightly agitated, well cooperated during the physical. HEENT: Conjunctive are pink, sclerae clear, no icterus, pupil is equal in both sides, reactive to light, no ear discharge, no pharyngeal erythema or an edema. Neck: Supple, no JVD, no lymphadenopathy and thyromegaly. Chest: Equal air entry on both lungs, no additional sounds no rhonchi no wheezing at the moment. Cardiovascular: S1-S2 regular sinus rhythm and, regular rate, no gallops, no rubs, no murmurs Abdomen: No visible peristalsis, Bowel sounds present on auscultation, soft, no tenderness at level of the epigastrium with mild palpation, no guarding, no rigidity Extremities: No obvious deformities, no pitting edema bilaterally, capillary refill intact, peripheral pulsations are intact on both sides. Central Nervous System: No focal neurological deficits, no motor or sensory weakness in all 4 extremities, could move all 4 extremities, 2+ deep tendon reflexes, negative Babinski. Musculoskeletal: No joint swelling, deformities, inflammations, and no scoliosis and back tenderness Skin: Warm and dry. Vital Signs Date Time Temp Pulse Resp B/P (MAP) Pulse Ox O2 Delivery O2 Flow Rate FiO2 01/12/25 08:00 Room Air 0.0 01/12/25 06:00 96.7 65 16 117/74 (88) 99 Laboratory Tests Test 01/10/25 14:48 01/10/25 19:43 01/11/25 02:40 01/11/25 05:10 Glucometer 116 mg/dl 111 mg/dl 87 mg/dl White Blood Count 3.4 X10'3 Red Blood Count 3.75 X10'6 Hemoglobin 12.3 g/dl Hematocrit 36.6 % Mean Corpuscular Volume 97.8 FL Mean Corpuscular Hemoglobin 32.8 PG Mean Corpuscular Hemoglobin Concent 33.6 g/dL Red Cell Distribution Width 14.2 % Platelet Count 75 X10'3 Mean Platelet Volume 8.7 FL Neutrophils (%) (Auto) 74.6 % Lymphocytes (%) (Auto) 15.4 % Monocytes (%) (Auto) 8.4 % Eosinophils (%) (Auto) 1.2 % Basophils (%) (Auto) 0.4 % Neutrophils # (Auto) 2.5 X10'3 Lymphocytes # (Auto) 0.5 X10'3 Monocytes # (Auto) 0.3 X10'3 Eosinophils # (Auto) 0.0 X10'3 Basophils # (Auto) 0.0 X10'3 CBC Comment Prothrombin Time 13.1 SECONDS INR International Normalized Ratio 1.3 INR Coagulation Comments Sodium Level 134 MMOL/L Potassium Level 3.5 MMOL/L Chloride Level 95 MMOL/L Carbon Dioxide Level 25.6 MMOL/L Anion Gap 13 Blood Urea Nitrogen 4 MG/DL Creatinine 0.53 MG/DL Estimated GFR/1.73 m2 > 90 ML/MIN BUN/Creatinine Ratio 7.5 Glucose Level 70 MG/DL Calcium Level 8.3 MG/DL Phosphorus Level 1.7 MG/DL Magnesium Level 1.8 MG/DL Total Bilirubin 1.1 MG/DL Aspartate Amino Transf (AST/SGOT) 154 U/L Alanine Aminotransferase (ALT/SGPT) 82 U/L Alkaline Phosphatase 128 IU/L Total Protein 6.7 G/DL Albumin 3.4 G/DL Globulin 3.3 G/DL Albumin/Globulin Ratio 1.0 Amylase Level 290 U/L Lipase > 375 U/L Chemistry Comments Test 01/12/25 05:02 01/12/25 05:08 White Blood Count 3.4 X10'3 Red Blood Count 3.43 X10'6 Hemoglobin 11.2 g/dl Hematocrit 32.9 % Mean Corpuscular Volume 96.1 FL Mean Corpuscular Hemoglobin 32.7 PG Mean Corpuscular Hemoglobin Concent 34.1 g/dL Red Cell Distribution Width 14.0 % Platelet Count 76 X10'3 Mean Platelet Volume 8.3 FL Neutrophils (%) (Auto) 59.5 % Lymphocytes (%) (Auto) 28.1 % Monocytes (%) (Auto) 9.5 % Eosinophils (%) (Auto) 2.3 % Basophils (%) (Auto) 0.6 % Neutrophils # (Auto) 2.0 X10'3 Lymphocytes # (Auto) 1.0 X10'3 Monocytes # (Auto) 0.3 X10'3 Eosinophils # (Auto) 0.1 X10'3 Basophils # (Auto) 0.0 X10'3 CBC Comment Prothrombin Time 12.7 SECONDS INR International Normalized Ratio 1.3 INR Coagulation Comments Sodium Level 135 MMOL/L Potassium Level 3.2 MMOL/L Chloride Level 99 MMOL/L Carbon Dioxide Level 27.1 MMOL/L Anion Gap 9 Blood Urea Nitrogen 4 MG/DL Creatinine 0.56 MG/DL Estimated GFR/1.73 m2 > 90 ML/MIN BUN/Creatinine Ratio 7.1 Glucose Level 86 MG/DL Calcium Level 8.1 MG/DL Phosphorus Level 2.4 MG/DL Magnesium Level 1.4 MG/DL Total Bilirubin 0.8 MG/DL Aspartate Amino Transf (AST/SGOT) 94 U/L Alanine Aminotransferase (ALT/SGPT) 63 U/L Alkaline Phosphatase 147 IU/L Total Protein 6.2 G/DL Albumin 3.1 G/DL Globulin 3.1 G/DL Albumin/Globulin Ratio 1.0 Amylase Level 185 U/L Lipase > 375 U/L Chemistry Comments *Problems/Diagnosis: (1) Alcohol withdrawal syndrome Status: Acute (2) Acute pancreatitis Status: Acute Total Time Spent on D/C: > 30 Minutes Date of Service: Jan 12, 2025 Billing Provider: KAISER MELENDEZ MD Common Visit Codes: 59315-UHM/OBS DISCH DAY >30min LAW SHUKLA, RES Jan 12, 2025 13:32 KAISER MELENDEZ MD Jan 12, 2025 21:50
[2025-01-13] MEDS ORDERED: LORazepam 1 MG tablet PO PRN (07:55)
[2025-01-13] MEDS ORDERED: LORazepam 2 mg/ml vial IV PRN (07:55)
[2025-01-13] MEDS ORDERED: folic acid 1mg tablet PO SCH (08:00)
== END 2025-01-12 10:20 | disposition home or self-care (01) | DRG 282 ==
LOC: ER 00:09 → ED HOLD 07:50 → ORTHO 4S 13:01
PROVIDERS: ADMIT Internal Medicine; ATTEND Internal Medicine
DX: K85.20 Alcohol induced acute pancreatitis without necrosis or infection (principal); K76.0 Fatty (change of) liver, not elsewhere classified; F10.229 Alcohol dependence with intoxication, unspecified; F31.9 Bipolar disorder, unspecified; F41.9 Anxiety disorder, unspecified; F10.239 Alcohol dependence with withdrawal, unspecified; R74.01 Elevation of levels of liver transaminase levels; Z87.891 Personal history of nicotine dependence; Z88.0 Allergy status to penicillin
CPT/HCPCS: 36415; 76700; 80053; 80061; 80305; 80320; 81001; 81025; 82150; 82948; 83036; 83690; 83735; 84100; 85025; 85610; 87081; 96361; 96374; 96375; 97161; 97530; 99285; G0378; J1171; J2060; J2270; J2405; J3360; J3411; J3490; J7030; J7120

== ENCOUNTER 2025-02-20 15:31 | Emergency (ER) | payer MEDICAID ==
[~2025-02-20] VITALS: Ht 162.6 cm; Wt 54.5 kg
[2025-02-20 15:45] VITALS: TEMP 97.6
[2025-02-20 17:16] LABS: MEAN PLATELET VOLUME 8.0 FL (7.4-10.4); RED CELL DISTRIBUTION WIDTH 13.0 % (11.5-14.5)
[2025-02-20 17:36] LABS: CREATININE 0.48 MG/DL (0.40-0.90); TOTAL CARBON DIOXIDE 28.3 MMOL/L (24-32); eCRCL 158 ML/MIN; eGFR > 90 ML/MIN
[2025-02-20 19:02] VITALS: BP 110/63; PULSE 72; RESP 14; O2SAT 99
[2025-02-20 19:36] LABS: LEUKOCYTE ESTERASE ,URINE SMALL (Neg); NITRITES, URINE NEGATIVE (Neg); OCCULT BLOOD,URINE NEGATIVE (Neg)
[2025-02-20 19:37] LABS: URINE HCG NEGATIVE (NEG)
[2025-02-20 20:20] LABS: UA COLLECTION TYPE CLN CATCH MIDSTREAM
[2025-02-20 20:22] LABS: MUCUS STRANDS MODERATE /LPF (Neg); SQUAMOUS EPITHELIAL CELL,UR MODERATE /LPF (FEW)
== END 2025-02-20 21:32 | disposition left against medical advice (07) ==
LOC: ER 15:33
DX: F10.129 Alcohol abuse with intoxication, unspecified (principal); R10.10 Upper abdominal pain, unspecified; R11.2 Nausea with vomiting, unspecified; Z53.21 Procedure and treatment not carried out due to patient leaving prior to being seen by health care provider; Y90.9 Presence of alcohol in blood, level not specified
CPT/HCPCS: 36415; 80053; 81001; 81025; 83690; 85025; 87088

== ENCOUNTER 2025-07-09 11:54 | Emergency (ER) | payer MEDICAID | END 2025-07-09 12:29 | disposition left against medical advice (07) | LOC: ER 11:55 | DX: R07.9 Chest pain, unspecified (principal); Z88.0 Allergy status to penicillin; Z88.1 Allergy status to other antibiotic agents; Z53.21 Procedure and treatment not carried out due to patient leaving prior to being seen by health care provider ==

== ENCOUNTER 2025-07-09 12:59 | Emergency (ER) | payer MEDICAID ==
[~2025-07-09] VITALS: Ht 165.1 cm; Wt 74.0 kg
[2025-07-09 13:05] VITALS: BP 110/65; PULSE 102; RESP 17; TEMP 96.8; O2SAT 99
--- NOTE | 2025-07-09 13:13 | Physician Documentation ---
History of Present Illness ~ Chief Complaint: ETOH Stated Complaint: ABDOMINAL PAIN OK to notify your PCP?: Yes Primary Medical Doctor: Sandeep Garcia Source: patient Mode of Arrival: POV Exam Limitations: intoxication HPI This is a 25-year-old female who comes in his essentially for alcohol intoxication. The patient has been here multiple times a day for the same issue. The patient is very emotionally labile and tearful. She denies thoughts of wanting to harm herself or others. She denies any injuries or any other acute concerns. She denies pain anywhere Tetanus within 5 years?: No Medication Reconciliation Allergies: Coded Allergies: Penicillins (Verified Allergy, Unknown, 07/09/25) amoxicillin (Verified Allergy, Unknown, 07/09/25) Scheduled PRN Lorazepam (Ativan), 1 TAB PO Q12H PRN PRN for anxiety Past Medical History Past Medical History: Anxiety, Bipolar Past Surgical History: noncontributory Alcohol Use: Heavy Drug Use: marijuana, methamphetamine, cocaine, other Lives with: Alone Lives In: Home Occupation: unemployed Physical Exam Vital Signs: Temperature: 96.8, Source: Temporal, Heart Rate: 102, Respiratory Rate: 17, BP: 110/65, Pulse Oximetry: 99, Weight: 74.000 Pulse Oximetry Reflects: adequate oxygenation General Appearance: alert, WD/WN, ETOH (The patient is in his obviously intoxicated and is very tearful.) Head: no evidence of injury Face: normal EENT The eyes are erythematous and bloodshot. Pupils are PERRLA. Respiratory: no respiratory distress Chest: symmetrical Neurologic: oriented x4, clinical advisor II-XII nml as tested, memory intact, oriented to time, oriented to person, oriented to place, oriented to events Motor / Sensory: no motor deficit Affect: anxious, other Progress Results/Orders Results/Orders Vital Signs 07/09/25 13:05 Temp 96.8 Pulse 102 Resp 17 B/P (MAP) 110/65 Pulse Ox 99 Medical Decision Making Additional information obtaine: N/A Findings Lives with the mouth all intoxication with the patient has not no acute complaints. No signs withdrawal and she is actively intoxicated. She denies SI or HI. Differential Dx:Considerations: Intoxication - ETOH, Intoxication - other drug, Sub. Abuse -continuous, Sub. Abuse-intermittent, Skull fracture, Fracture - other bone, Personality disorder, Closed head injury, Cervical spine injury, Abrasion, Confusion, Hematoma, Laceration, Foreign body, Dehydration, Encephalopathy, Hepatitis, Pancreatitis, Thiamine deficiency, Other Additional Comment Alcohol intoxication. Alcohol abuse. Anxiety. Emotional upset. Departure Impression: Primary Impression: Alcoholic intoxication Discharge Instructions: Alcohol Intoxication Referrals: NO PRIMARY CARE PROVIDER (PCP) Signature Scribe Signature: No scribe Attestation: The note accurately reflects work and decisions made by me.Kacy BRODERICK 07/11/25 15:20 KACY HARRIS Jul 09, 2025 13:13
== END 2025-07-09 13:28 | disposition home or self-care (01) ==
LOC: ER 12:59
DX: F10.129 Alcohol abuse with intoxication, unspecified (principal); F31.9 Bipolar disorder, unspecified; F12.90 Cannabis use, unspecified, uncomplicated; F15.90 Other stimulant use, unspecified, uncomplicated; F14.90 Cocaine use, unspecified, uncomplicated; F19.90 Other psychoactive substance use, unspecified, uncomplicated; Z88.0 Allergy status to penicillin; Z88.1 Allergy status to other antibiotic agents; Y90.9 Presence of alcohol in blood, level not specified; Z56.0 Unemployment, unspecified; Z60.2 Problems related to living alone
CPT/HCPCS: 99282